=== PATIENT | female | born 1975 | race Caucasian/White ===

== ENCOUNTER → 2020-08-20 08:52 | Outpatient (BNVA) | payer OTHER, SELFPAY | PROVIDERS: Family Provider Family Medicine; PCP Family Medicine; Visit Provider Family Medicine Adult Medicine | DX: Z00.00 Encounter for general adult medical examination without abnormal findings (principal); E66.9 Obesity, unspecified; F32.9 Major depressive disorder, single episode, unspecified; F41.1 Generalized anxiety disorder; Z11.59 Encounter for screening for other viral diseases | CPT/HCPCS: 80053; 80061; 83036; 84443; 85025 ==

== ENCOUNTER 2020-09-26 10:50 | Outpatient (CLI) | payer OTHER, SELFPAY ==
--- NOTE | 2020-09-26 10:55 | MM_ITS ---
WS: [id number] BILATERAL DIGITAL SCREENING MAMMOGRAPHY WITH CAD CLINICAL INFORMATION: SCREENING HISTORY: Screening mammogram. No current complaints. COMPARISON: None. TECHNIQUE: Bilateral CC and MLO views. FINDINGS: Scattered fibroglandular densities bilaterally. No suspicious focal mass, asymmetry, calcifications, or architectural distortion. No evidence of malignancy. MM/[place] [id number] IMPRESSION: BI-RADS: 1-Negative FOLLOW UP: 1 Year Follow-up Recommend return to annual screening mammography.
== END 2020-09-26 10:51 | disposition home or self-care (01) ==
PROVIDERS: PCP Family Medicine; Visit Provider Family Medicine Adult Medicine
DX: Z12.31 Encounter for screening mammogram for malignant neoplasm of breast (principal)
CPT/HCPCS: 77067

== ENCOUNTER 2020-10-06 06:26 | Emergency (ER) | payer OTHER, SELFPAY ==
[2020-10-06 06:30] VITALS: BP 146/95; PULSE 100; RESP 16; TEMP 36.3; O2SAT 97; BMI 36.8
--- NOTE | 2020-10-06 06:35 | ECG_ITS ---
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
--- NOTE | 2020-10-06 06:35 | XR_ITS ---
WS: [id number] Exam: XR chest 1V portable [id number] Date/Time of Exam: 10/06/2020 7:07 AM Reason For Exam: chest pain Findings: The lungs are clear and fully expanded. Costophrenic angles are sharp. No infiltrates. Bronchovascula r relief appears normal. Cardiac silhouette is unremarkable. Bony elements are intact. XR/XR chest 1V portable [id number] IMPRESSION: Unremarkable chest radiograph.
--- NOTE | 2020-10-06 06:36 | ED_ITS ---
HPI - Chest Pain General: Chief Complaint: Chest Pain Stated Complaint: R LEG PAIN, CHEST PRESSURE Time Seen by Provider: 10/06/20 06:35 History of Present Illness: HPI narrative: 45-year-old female presents with complaint of right leg pain as well as chest discomfort that is worse when she lays down. The chest pain began 2 days ago right leg pain began about 4 days ago. Chest pains only when she lays down somewhat reproducible with palpation not reproducible with a deep breath. She rates her leg pain at a 3 when we first see her. States the chest pain is only when she moves in certain directions. It is enough at times to make it feel difficult to take a full breath. She not had any fever sweats or chills no productive cough. She refers most of the leg pain to the outer aspect of the thigh at times it radiates down into the foot. The chest pain is not significantly reproducible with palpation. I can bring about some chest discomfort with palpation but she states is not really the pain that brought her into the emergency room. MD complaint: chest pain Onset (ago): day(s) Timing of current episode: episodic Prior episodes: Yes Onset: during rest Pain location: left chest Pain radiation: none Severity: mild Quality: heaviness Relieving factors: sitting upright Exacerbating factors: supine Associated symptoms: Reports other (Right leg pain); Deny abdominal pain, diaphoresis, dyspnea, fever(s), leg edema, nausea, palpitations, sense of impending doom, syncope or vomiting Treatment prior to arrival: none Review of Systems Const: Denies: fever(s) or diaphoresis ENMT: Denies: throat pain, ear or mastoid pain, nasal discharge or nasal congestion Card: Denies: palpitations or syncope Resp: Denies: dyspnea GI: Denies: abdominal pain, nausea or vomiting : Denies: flank pain, difficulty voiding, dysuria, urinary frequency or urinary urgency Skin/Breast: Denies: rash or pruritus PFSH ED PFSH: Medical History ADHD Depression Encounter for screening laboratory testing for COVID-19 virus Generalized anxiety disorder Obesity (BMI 35.0-39.9 without comorbidity) Upper respiratory tract infection Family History Other Diabetes Myasthenia gravis Social History Smoking and tobacco status: never smoked Alcohol intake: never Household members: spouse and children Marital status: Number of children: 4 Current occupational status: employed History of recent travel: No Female Reproductive History: Date of last menstrual period: 09/13/20 Physical Exam Const: COMMON NORMALS: no acute distress GENERAL APPEARANCE: cooperative and comfortable ORIENTATION/CONSCIOUSNESS: Yes awake, Yes oriented to person, Yes oriented to place and Yes oriented to time HENMT: COMMON NORMALS: normocephalic, atraumatic and hearing grossly normal bilaterally HEAD & SCALP: normocephalic and atraumatic Neck/C-Spine: COMMON NORMALS: no JVD Resp: COMMON NORMALS: normal respiratory effort, No retractions, No use of accessory muscles and clear to auscultation bilaterally AUSCULTATION: clear to auscultation bilaterally Cardio: COMMON NORMALS: no JVD, regular rate, regular rhythm and No murmurs present (Cardio) RATE: regular rate RHYTHM: regular rhythm GI: COMMON NORMALS: Soft to palpation and No hepatosplenomegaly present AUSCULTATION: Yes normoactive bowel sounds PALPATION: Yes Soft to palpation, No Tenderness to palpation present (GI), No Guarding due to palpation present (GI) and Yes No hepatosplenomegaly present Extremity: COMMON NORMALS: normal to inspection, capillary refill normal, no clubbing, cyanosis or edema, no calf tenderness and no pedal edema Neuro: SENSORIUM/ORIENTATION: Yes oriented to person, Yes oriented to place and Yes oriented to time Skin: COMMON NORMALS: no rashes or lesions noted GENERAL SKIN EXAM: no rashes or lesions noted Course Vital Signs: Vital signs: Vital Signs Temperature 97.3 F L 10/06/20 06:30 Pulse Rate 76 10/06/20 10:57 Respiratory Rate 20 H 10/06/20 10:57 Blood Pressure 127/96 10/06/20 10:57 Pulse Oximetry 97 10/06/20 10:57 MDM - Chest Pain MDM Narrative: Medical decision making narrative: Went back to the room to discuss with the patient she was standing at the bedside now leaning over trying to relieve her leg pain. She was posturing and pain typical of patients with lumbar stenosis bend over through the hips isolating her low back. She states her leg pain was significantly worse than what had been in previously. Reexamined the patient she has a negative straight leg raising dorsum plantar flexion 5 5 sensation lower extremities normal bilaterally and her straight leg raising test is negative. We will go ahead and discharge her home states she had trouble in the past with Flexeril give her tizanidine instead as well as anti-inflammatory narcotic. Tricia try to get her set up for a MRI of her back given her radicular symptoms and get her into see Dr. Cote as soon as possible. Reviewed the findings with her DVT T screen was negative ultrasound of her heart showed no sign of pericardial effusion I do not believe she has a per icarditis. Her EKG did not show anything acute. She has any worsening or change symptoms return to the emergency room. Lab Data: Labs: Lab Results 10/06/20 10/06/20 10/06/20 Range/Units 06:42 06:42 06:42 WBC 5.5 (4.0-10.0) 10^3/ uL RBC 4.77 (4.1-5.3) 10^6/u L Hgb 14.8 (11.5-15.3) g/dL Hct 44.5 (37.0-47.0) % MCV 93.3 (81-99) fL MCH 31.0 (28.0-34.0) pg MCHC 33.3 (30.0-36.0) g/dL RDW 12.6 (12.1-15.1) % Plt Count 234 (130-400) 10^3/c mm MPV 9.1 (7.4-10.4) fL Neut % (Auto) 46.1 % Lymph % (Auto) 43.4 % [place] % (Auto) 7.3 % Eos % (Auto) 2.6 % Baso % (Auto) 0.4 % Neut # (Auto) 2.52 (1.8-7.7) 10^3/u L Lymph # (Auto) 2.4 (0.8-4.8) 10^3/u L [place] # (Auto) 0.4 (0.2-0.9) 10^3/u L Eos # (Auto) 0.1 (0.0-0.8) 10^3/u L Baso # (Auto) 0.0 (0.0-0.1) 10^3/u L Nucleated RBC % (a uto) 0 % Nucleated RBCs # 0.0 /100WBC Sodium 140 (136-145) mmol/L Potassium 4.2 (3.5-5.1) mmol/L Chloride 105 (98-107) mmol/L Carbon Dioxide 24 (22-29) mmol/L Anion Gap 15.2 (5-19) BUN 13 (6-20) mg/dL Creatinine 0.6 (0.5-0.9) mg/dL GFR Calculation 109.1 (90-130) mL/min Glucose 163 H (65-115) mg/dL Calculated Osmolal ity 294 (285-295) mOsm/k g Calcium 9.3 (8.5-10.5) mg/dL Total Bilirubin 0.5 (0.15-1.2) mg/dL AST 13 (0-32) U/L ALT 18 (0-33) U/L Alkaline Phosphata se 50 (35-105) IU/L Troponin T Baselin e 6 (0-10) ng/L Troponin T 120 Min tulalip (0-10) ng/L Delta Troponin T (0-10) ABS# Total Protein 8.5 (6.6-8.7) g/dL Albumin 4.5 (3.5-5.2) g/dL Globulin 4.0 (1.3-4.6) g/dL 10/06/20 Range/Units 09:22 WBC (4.0-10.0) 10^3/ uL RBC (4.1-5.3) 10^6/u L Hgb (11.5-15.3) g/dL Hct (37.0-47.0) % MCV (81-99) fL MCH (28.0-34.0) pg MCHC (30.0-36.0) g/dL RDW (12.1-15.1) % Plt Count (130-400) 10^3/c mm MPV (7.4-10.4) fL Neut % (Auto) % Lymph % (Auto) % [place] % (Auto) % Eos % (Auto) % Baso % (Auto) % Neut # (Auto) (1.8-7.7) 10^3/u L Lymph # (Auto) (0.8-4.8) 10^3/u L [place] # (Auto) (0.2-0.9) 10^3/u L Eos # (Auto) (0.0-0.8) 10^3/u L Baso # (Auto) (0.0-0.1) 10^3/u L Nucleated RBC % (a uto) % Nucleated RBCs # /100WBC Sodium (136-145) mmol/L Potassium (3.5-5.1) mmol/L Chloride (98-107) mmol/L Carbon Dioxide (22-29) mmol/L Anion Gap (5-19) BUN (6-20) mg/dL Creatinine (0.5-0.9) mg/dL GFR Calculation (90-130) mL/min Glucose (65-115) mg/dL Calculated Osmolal ity (285-295) mOsm/k g Calcium (8.5-10.5) mg/dL Total Bilirubin (0.15-1.2) mg/dL AST (0-32) U/L ALT (0-33) U/L Alkaline Phosphata se (35-105) IU/L Troponin T Baselin e (0-10) ng/L Troponin T 120 Min t[place]alip 6.00 (0-10) ng/L Delta Troponin T 0 (0-10) ABS# Total Protein (6.6-8.7) g/dL Albumin (3.5-5.2) g/dL Globulin (1.3-4.6) g/dL EKG Data^: EKG 1: EKG interpretation date: 10/06/20 EKG interpretation time: 06:36 Prior EKG tracings: not available for review Other EKG comments: Normal sinus rhythm rate of [address] segment changes. Discharge Plan Discharge Patient Disposition: Home Clinical Impression: Atypical chest pain, Radicular leg pain Condition: Stable Prescriptions: New hydrocodone-acetaminophen 5-325 mg tablet 1 tab PO Q6H PRN (Reason: pain) Qty: 20 RF: 0 diclofenac sodium 75 mg tablet,delayed release (DR/EC) 75 mg PO Q12H PRN (Reason: pain) Qty: 20 RF: 0 Medrol (Tomas) 4 mg tablets,dose pack See Rx Instructions .ROUTE .COMPLEX Qty: 21 RF: 0 tizanidine 4 mg capsule 4 mg PO Q8H PRN (Reason: muscle spasticity) Qty: 20 RF: 0 No Action buspirone 5 mg tablet 5 mg PO .q8 PRN (Reason: for increased anxiety) Qty: 30 RF: 2 citalopram 20 mg tablet 20 mg PO DAILY Qty: 30 RF: 5 pravastatin 40 mg tablet 40 mg PO DAILY Qty: 30 RF: 5 Discharge Orders: Discharge ED (Routine); Ordered 10/06/20 Ordered By: Lauro Walker Referrals: Papo Quinonez MD [Primary Care Provider] - Coding Level of Care Code ED Cafe Assistant for Lisa Gale
[2020-10-06] MEDS: aspirin 81 mg Chew Tablet 324 MG PO (06:40)
--- NOTE | 2020-10-06 06:43 | USCV_ITS ---
Ludwin Fanny Age: 45 Gender: F : 1975 Exam Date: 10/06/2020 06:54 Ordering Phys: Lauro Walker DO Technologist: Mirlande Shell Exam Location: [facility]_ Indication: RLE PAIN WITH SOB HISTORY: Lower extremity pain. PROCEDURES: Venous duplex imaging was performed in only the right lower extremity. The following venous structures were evaluated: common femoral vein, profunda vein, proximal portion of the greater saphenous vein, superficial femoral vein, and the popliteal vein. The following venous structures were evaluated: common femoral vein, profunda vein, proximal portion of the greater saphenous vein, superficial femoral vein, and the popliteal vein. In addition, the posterior tibial and peroneal trunk were evaluated. FINDINGS: No evidence of DVT seen in any vessel visualized at this time. CONCLUSIONS No evidence of right lower extremity DVT. Ahsan Luna MD (Electronically Signed) Final Date: 06 October 2020 08:57 S
[2020-10-06 06:49] LABS: Basophils % 0.4 %; Eosinophils # 0.1 10^3/uL (0.0-0.8); Eosinophils % 2.6 %; Hematocrit 44.5 % (37.0-47.0); Hemoglobin 14.8 g/dL (11.5-15.3); Lymphocytes # 2.4 10^3/uL (0.8-4.8); Lymphocytes % 43.4 %; Mean Corpuscular HGB Conc 33.3 g/dL (30.0-36.0); Mean Corpuscular Volume 93.3 fL (81-99); Mean Platelet Volume 9.1 fL (7.4-10.4); Monocytes # 0.4 10^3/uL (0.2-0.9); Monocytes % 7.3 %; Neutrophils # 2.52 10^3/uL (1.8-7.7); Neutrophils % 46.1 %; Nucleated Red Blood Cells % 0 %; Platelet Count 234 10^3/cmm (130-400); Red Blood Count 4.77 10^6/uL (4.1-5.3); Red Cell Distribution Width 12.6 % (12.1-15.1); White Blood Count 5.5 10^3/uL (4.0-10.0)
[2020-10-06 07:15] LABS: Alanine Aminotransferase 18 U/L (0-33); Albumin Level 4.5 g/dL (3.5-5.2); Alkaline Phosphatase 50 IU/L (35-105); Anion Gap 15.2 (5-19); Aspartate Amino Transferase 13 U/L (0-32); Blood Urea Nitrogen 13 mg/dL (6-20); Calcium 9.3 mg/dL (8.5-10.5); Carbon Dioxide 24 mmol/L (22-29); Chloride 105 mmol/L (98-107); Glomerular Filtration Rate 109.1 mL/min (90-130); Glucose 163 mg/dL (65-115); Osmolality Calculated 294 mOsm/kg (285-295); Potassium 4.2 mmol/L (3.5-5.1); Sodium 140 mmol/L (136-145); Total Bilirubin 0.5 mg/dL (0.15-1.2); Troponin(5th) Baseline 6 ng/L (0-10)
--- NOTE | 2020-10-06 07:31 | USCV_ITS ---
Ludwin Fanny Age: 45 Gender: F : 1975 Exam Date: 10/06/2020 07:53 Ordering Phys: Lauro Walker DO Technologist: Gabriella Shaw [place]am [place] [facility] [place] [facility] [place] Indication: CHEST PRESSURE BP: 129 / 71 HR: 69 Rhythm: Sinus Technical Quality: Adequate MEASUREMENTS (Male / Female) Normal Values 2D ECHO LV Diastolic Diameter PLAX 4.1 cm 4.2 - 5.9 / 3.9 - 5.3 cm LV Systolic Diameter PLAX 2.6 cm LV Chamber Size 3.3 cm IVS Diastolic Thickness 0.9 cm 0.6 - 1.0 / 0.6 - 0.9 cm IVS Systolic Thickness 1.5 cm LVPW Diastolic Thickness 1.1 cm 0.6 - 1.0 / 0.6 - 0.9 cm LVPW Systolic Thickness 1.5 cm RV Chamber Size 2.2 cm LVOT Diameter 2.0 cm LV Ejection Fraction 2D Teich 67.0 % LV Ejection Fraction MOD 2C 63.3 % LV Ejection Fraction 2C AL 61.8 % LA Diameter 3.7 cm LA Width 3.0 cm LA Height 3.1 cm RA Width 2.6 cm RA Height 4.6 cm Aorta at Sinotubular Diameter 3.1 cm M-MODE LV Diastolic Diameter MM 4.8 cm 4.2 - 5.9 / 3.9 - 5.3 cm LV Systolic Diameter MM 3.0 cm LV Ejection Fraction MM Teich 69.1 % IVS Diastolic Thickness MM 1.0 cm 0.6 - 1.0 / 0.6 - 0.9 cm IVS Systolic Thickness MM 1.5 cm LVPW Diastolic Thickness MM 1.0 cm 0.6 - 1.0 / 0.6 - 0.9 cm LVPW Systolic Thickness MM 1.9 cm RV Diastolic Diameter MM 1.2 cm Aortic Annulus Diameter 3.6 cm LA Ao Ratio MM 1.1 MV E Point Septal Separation 0.2 cm DOPPLER AV Peak Velocity 109.0 cm/s LVOT Peak Velocity 93.0 cm/s AV Area Cont Eq vti 3.7 cm squared AV Area Cont Eq pk 2.8 cm squared MV Area PHT 3.6 cm squared Mitral E to A Ratio 1.2 MV E' Velocity 39.0 cm/s Mitral E to MV E' Ratio 6.7 Mitral E to LV E' Lateral Ratio 6.5 Mitral E to LV E' Septal Ratio 6.8 TR Peak Velocity 152.1 cm/s TR Peak Gradient 9.2 mmHg TR Mean Velocity 121.1 cm/s TR Mean Gradient 6.2 mmHg TR Velocity Time Integral 36.5 cm TV Peak E Velocity 53.0 cm/s Right Atrial Pressure 3.0 mmHg Pulmonary Artery Systolic Pressu 12.2 mmHg PV Peak Velocity 48.7 cm/s RV Acceleration Time 0.2 s RV Ejection Time 0.4 s RV AcT/ET 0.4 FINDINGS Left Ventricle Normal left ventricular size and systolic function with no regional wall motion abnormalities. LVEF is 55 to 60%. Normal diastolic filling pattern. Right Ventricle The right ventricle is normal in size and function. Right Atrium The right atrium is normal in size. Left Atrium The left atrium is normal in size. Mitral Valve Structurally normal mitral valve without significant stenosis or prolapse. There is no mitral regurgitation. Aortic Valve Structurally normal aortic valve without significant sclerosis or stenosis. There is no aortic regurgitation. Tricuspid Valve Structurally normal tricuspid valve without significant stenosis or regurgitation. Insufficient TR jet to calculate RVSP. Pulmonic Valve Structurally normal pulmonic valve without significant stenosis. There is no pulmonic regurgitation. Pericardium Normal pericardium without effusion. Aorta Normal ascending aorta dimension. CONCLUSIONS Que Worrell MD (Electronically Signed) Final Date: 06 October 2020 09:51 S
--- NOTE | 2020-10-06 08:35 | ECG_ITS ---
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
[2020-10-06 08:42] VITALS: BP 111/74; PULSE 67; RESP 20; O2SAT 97
[2020-10-06 09:49] LABS: Troponin 5 2HR Delta 0 ABS# (0-10)
[2020-10-06] MEDS: dexamethasone 10 mg/mL INJ IVP (10:20)
[2020-10-06] MEDS: ondansetron 2 mg/ML SDV 2 mL 4 MG IVP (10:20)
[2020-10-06 10:57] VITALS: BP 127/96; PULSE 76; RESP 20; O2SAT 97
[2020-10-06 14:52] LABS: Total Protein 6.4 g/dL (6.6-8.7)
[2020-10-06 14:53] LABS: Globulin 1.9 g/dL (1.3-4.6)
--- NOTE | 2020-10-06 15:53 | DCPLANNER ---
document manager had message to schedule an out patient MRI for patient. document manager faxed patients information to centralized scheduling, will call for appointment information.
--- NOTE | 2020-11-05 14:11 | DCPLANNER ---
Patient had an out patient MRI scheduled, patient cancelled the appointment stating that she did not feel like she needed it at this time. corporate human resources manager will not make referral to ortho due to not having the MRI completed.
== END 2020-10-06 11:05 | disposition home or self-care (01) ==
PROVIDERS: Emergency Provider Family Medicine; PCP Family Medicine Adult Medicine
DX: R07.89 Other chest pain (principal); M54.10 Radiculopathy, site unspecified
CPT/HCPCS: 12345; 71045; 80053; 84484; 85025; 93005; 93306; 93971; 96374; 96375; 99282; 99284; J1100; J2405

== ENCOUNTER → 2020-10-30 17:13 | Outpatient (BNVA) | payer OTHER, SELFPAY | PROVIDERS: PCP Family Medicine Adult Medicine; Visit Provider Nurse Practitioner Family | DX: Z11.59 Encounter for screening for other viral diseases (principal) | CPT/HCPCS: 87635 ==

== ENCOUNTER 2021-01-11 02:46 | Emergency (ER) | payer OTHER, SELFPAY ==
[2021-01-11 02:51] VITALS: BP 194/148; PULSE 158; RESP 60; O2SAT 96; BMI 35.5
--- NOTE | 2021-01-11 03:05 | ED_ITS ---
HPI - Allergic Reaction General: Chief complaint: Allergic Reaction Stated complaint: POSS ALLERGIC REACTION Time Seen by Provider: 01/11/21 02:55 Source: patient and family () Mode of arrival: ambulatory Limitations: no limitations History of Present Illness: HPI narrative: Patient is a 45-year-old female who presents to ED today along with her for complaints of a possible allergic reaction. Patient tells me she woke up around 2 AM this morning with a severe diffuse pruritic rash. No new medications. No known household, environmental, chemical exposures. Patient appears extremely anxious on exam. She states she has had two previous similar episodes that were not this severe. She is not complaining of any difficulty breathing. Denies trouble swallowing. No tongue or lip swelling. MD complaint: allergic reaction and hives Onset (ago): hour(s) (one hour ago) Exposure: unknown Associated symptoms: Reports itching and rash; Deny abdominal pain, nausea or vomiting Severity: severe Treatment prior to arrival: benadryl Previous Allergic Reaction History: none Review of Systems Const: Denies: fever(s), chills, body aches, fatigue or malaise Eyes: Denies: change in vision, blurry vision or photophobia ENMT: Denies: throat pain, odynophagia, mouth pain, swelling of lips/tongue, oral sores, ear discharge, nasal discharge, nasal congestion, post nasal drip or sinus pain Card: Denies: chest pain, palpitations, irregular heart rhythm, edema, lightheadedness, syncope or pre-syncope Resp: Denies: dyspnea GI: Denies: abdominal pain, nausea or vomiting Musc: Denies: neck pain, back pain, extremity pain or joint pain Skin/Breast: Reports: rash, pruritus and erythema Neuro: Denies: headache(s), numbness in extremities, weakness in extremities or sensory changes Psych: Reports: anxiety PFSH ED PFSH: Medical History (Updated 01/11/21 @ 03:54 by BHARGAV Navarro) ADHD Depression Encounter for screening laboratory testing for COVID-19 virus Generalized anxiety disorder Hyperlipidemia Obesity (BMI 35.0-39.9 without comorbidity) Prediabetes Upper respiratory tract infection Family History Other Diabetes Myasthenia gravis Social History Smoking and tobacco status: never smoked Alcohol intake: never Household members: spouse and children Marital status: Number of children: 4 Current occupational status: employed History of recent travel: No Female Reproductive History: Date of last menstrual period: 09/13/20 Physical Exam Const: COMMON NORMALS: no limitations and alert GENERAL APPEARANCE: anxious ORIENTATION/CONSCIOUSNESS: Yes awake, Yes oriented to person, Yes oriented to place and Yes oriented to time OTHER: patient extremely anxious; shaking HENMT: COMMON NORMALS: normocephalic and atraumatic HEAD & SCALP: normal to inspection, normocephalic and atraumatic FACE & SINUS: normal facial exam EXTERNAL EAR: Yes other (mild swelling to bilateral external ears) MOUTH: other (no angioedema) Eye: GENERAL EYE: appearance normal, both eyes and all related structures Chest: COMMONS NORMALS: normal inspection of the chest and normal palpation of entire chest wall Resp: COMMON NORMALS: clear to auscultation bilaterally EFFORT & INSPECTION: Yes tachypneic, No respiratory distress and No labored AUSCULTATION: clear to auscultation bilaterally OTHER: patient has stuttering speech Cardio: COMMON NORMALS: regular rhythm RATE: tachycardic RHYTHM: regular rhythm Neuro: SENSORIUM/ORIENTATION: Yes alert, Yes oriented to person, Yes oriented to place and Yes oriented to time Skin: NARRATIVE SKIN EXAM: diffuse urticaria Course Reevaluation(s): Reevaluation #1: Patient during my initial assessment had a BP of 194/148 with a HR in the 140s. She was re-examinated a few minutes after IV Ativan and Benadryl. BP now 158/94 with a HR of 98. Speaking to patient seemed to re-trigger some anxiety and she began shaking and stuttering again. I will order another 1mg Ativan. Vital Signs: Vital signs: Vital Signs Pulse Rate 96 01/11/21 04:38 Respiratory Rate 23 H 01/11/21 04:38 Blood Pressure 130/70 01/11/21 04:38 Pulse Oximetry 97 01/11/21 04:38 MDM - Allergic Reaction MDM Narrative: Medical decision making narrative: Patient completely asymptomatic after IV benadryl, pepcid, solu-medrol and ativan. Vitals have been stable and patient has been monitored following medications. She is stable for DC and feels comfortable going home at this time. Discharge Plan Discharge Patient Disposition: Home Clinical Impression: Urticaria, Panic attack Condition: Stable Prescriptions: No Action niacin 500 mg tablet extended release 24 hr 500 mg PO DAILY Qty: 30 RF: 5 citalopram 20 mg tablet 20 mg PO DAILY Qty: 30 RF: 5 buspirone 5 mg tablet 5 mg PO .q8 PRN (Reason: for increased anxiety) Qty: 30 RF: 5 Discharge Orders: Discharge ED (Routine); Ordered 01/11/21 Ordered By: Jayda Adams Referrals: Papo Quinonez MD [Primary Care Provider] - Patient Instructions: Urticaria (ED), Panic Attack Activity Restrictions/Additional Instructions: She may continue to take 50 mg Benadryl every 6 hours as needed for rash and itching. She may return to the emergency department for any worsening symptoms. Return immediately for any difficulty breathing, shortness of breath, tongue or lip swelling, or any other concerns you may have. Coding Level of Care Code ED Assisted Living Assistant for Lisa Fwd Exam Detailed
[2021-01-11] MEDS: LORazepam 2 mg/mL INJ 1 mL 1 MG IVP ×2 (03:11→03:28)
[2021-01-11] MEDS: diphenhydrAMINE 50 mg/mL SDV 1mL IVP (03:11)
[2021-01-11 03:13] VITALS: BP 194/148; PULSE 108; RESP 45; O2SAT 97
[2021-01-11] MEDS: famotidine 20 mg/2 mL INJ 40 MG IVP (03:27)
[2021-01-11 04:00] VITALS: BP 130/70; PULSE 99; RESP 17; O2SAT 95
[2021-01-11 04:38] VITALS: BP 130/70; PULSE 96; RESP 23; O2SAT 97
== END 2021-01-11 04:41 | disposition home or self-care (01) ==
PROVIDERS: Emergency Provider Physician Assistant; PCP Family Medicine Adult Medicine
DX: L50.9 Urticaria, unspecified (principal); F41.0 Panic disorder [episodic paroxysmal anxiety]; E78.5 Hyperlipidemia, unspecified
CPT/HCPCS: 96374; 96375; 99284; J1200; J2060; J2930; J3490

== ENCOUNTER → 2021-02-13 08:03 | Outpatient (BNVA) | payer OTHER, SELFPAY | PROVIDERS: PCP Family Medicine Adult Medicine; Visit Provider Family Medicine Adult Medicine | DX: S80.269A Insect bite (nonvenomous), unspecified knee, initial encounter (principal); W57.XXXA Bitten or stung by nonvenomous insect and other nonvenomous arthropods, initial encounter; L50.0 Allergic urticaria | CPT/HCPCS: 85007; 85027; 86003; 86618; 86666; 86757 ==

== ENCOUNTER → 2021-08-26 08:35 | Outpatient (BNVA) | payer OTHER, SELFPAY | PROVIDERS: PCP Family Medicine; Visit Provider Family Medicine | DX: Z91.018 Allergy to other foods (principal); E78.5 Hyperlipidemia, unspecified | CPT/HCPCS: 80061; 86003 ==

== ENCOUNTER → 2021-09-22 15:33 | Outpatient (BNVA) | payer OTHER, SELFPAY | PROVIDERS: PCP Family Medicine; Visit Provider Family Medicine | DX: Z20.822 Contact with and (suspected) exposure to COVID-19 (principal) | CPT/HCPCS: 87635 ==

== ENCOUNTER 2022-01-10 09:28 | Day surgery (SDC) | payer OTHER, SELFPAY ==
[2022-01-10] VITALS (15 sets, daily range): BP systolic 109–177; BP diastolic 60–95; PULSE 61–99; RESP 17–24; TEMP 36.2–36.7; O2SAT 96–100; BMI 32.3
--- NOTE | 2022-01-10 09:35 | ED_ITS ---
HPI - Abdominal Pain General: Chief Complaint: Abdominal Pain Stated Complaint: abdominal pain Time Seen by Provider: 01/10/22 09:35 History of Present Illness: Ms. 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 Symptoms started approximately 5 AM this morning. Symptoms are sharp and aching in the right abdomen. Associated nausea and diarrhea. Worse with movement and driving here. Intensity is moderate to severe. Denies similar episodes in the past. Has a history of abdominoplasty however no intra-abdominal surgeries. No other specific changes in health, exacerbating, or alleviating factors identified. Onset (ago): hour(s) Pain Consistency: constant Location: RUQ, RLQ and R flank Severity: moderate Quality: aching and sharp Exacerbating factors: movement Associated Symptoms: Reports diarrhea and nausea Related Data: Date of Last Menstrual Period: 01/04/22 Review of Systems General: Reports: 10 or more systems reviewed and unremarkable except in HPI and below GI: Reports: nausea and diarrhea PFSH ED PFSH: Medical History (Updated 01/10/22 @ 13:13 by Michael Perez MD) ADHD Allergic urticaria Depression Generalized anxiety disorder Hyperlipidemia Prediabetes Upper respiratory tract infection Surgical History (Updated 01/10/22 @ 13:32 by Michale Perez MD) History of abdominoplasty S/P laparoscopic appendectomy (01/10/22) Family History Other Diabetes Myasthenia gravis Social History Smoking and tobacco status: never smoked Alcohol intake: never Household members: spouse and children Marital status: Number of children: 4 Current occupational status: employed History of recent travel: No Female Reproductive History: Date of last menstrual period: 01/04/22 Physical Exam Const: COMMON NORMALS: alert GENERAL APPEARANCE: cooperative and well devel oped HENMT: COMMON NORMALS: normocephalic and atraumatic HEAD & SCALP: normocephalic and atraumatic Eye: COMMON NORMALS: conjunctivae normal CONJUNCTIVA: Yes conjunctivae normal SCLERA: sclerae normal Neck/C-Spine: COMMON NORMALS: supple GENERAL: Yes trachea midline Resp: COMMON NORMALS: clear to auscultation bilaterally EFFORT & INSPECTION: Yes able to speak in complete sentences AUSCULTATION: clear to auscultation bilaterally Cardio: COMMON NORMALS: regular rate and regular rhythm RATE: regular rate RHYTHM: regular rhythm GI: COMMON NORMALS: Soft to palpation PALPATION: Yes Soft to palpation, Yes Tenderness to palpation present (GI) Details: RLQ and RUQ, Yes Guarding due to palpation present (GI), No Rigid due to palpation, Yes Rebound tenderness present and Yes Other GI palpation findings present (Some right abdominal tenderness to left abdominal percussion) Extremity: GENERAL: Yes normal exam except as noted and No edema Neuro: COMMON NORMALS: moves all extremities SENSORIUM/ORIENTATION: Yes alert and No Orientation impaired Psych: COMMON NORMALS: mental status grossly normal and Normal thought process present THOUGHT PROCESS: Normal thought process present Course ED course: - Patient was seen and evaluated by me at bedside - Patient placed on cardiac monitors, IV access obtained - Initial evaluation notable for exam as above - Labs personally interpreted by me - Morphine and Zofran given - Patient subsequently developed feeling of shortness of breath, initially moderate intensity symptoms though oxygen saturation adequate there was associated tachycardia. Patient subsequently developed vomiting at which point anaphylaxis treatment was ordered with complete resolution of respiratory symptoms and improvement in overall condition with additional analgesia. - Labs notable for minimal leukocytosis, normal hemoglobin. Metabolic panel without acute derangement to explain symptoms. - Imaging notable for early acute appendicitis. - Upon serial reexamination after treatment the patient was improved - Based on patient history, evaluation, and testing as interpreted the most likely cause of the patient's condition is appendicitis - The results of ED evaluation were discussed with the patient including plan for admission due to requirement for level of care not available if discharged to prevent significant worsening/deterioration. - Admitting service was contacted and Dr Perez with general surgery agreed to admit the patient - Patient was admitted without further deterioration or significant events. Note: Click bubbles or prepopulated mccray in note writing are used for assistance with data collection and billing and are inherently more limited than narrative and other text portions of this note. Please use narrative for additional clinical history and defer to narrative/free test for any case of contradictory information. If information appears in only free text or click bubble it should be considered present or absent as reported. Please contact note health science writer for clarifications of clinical information or contradictory information. MDM is a brief summary, contradictory or erroneous seeming information should be clarified and full note should be reviewed. Vital Signs: Vital signs: Vital Signs Temperature 97.4 F L 01/10/22 15:48 Pulse Rate 68 01/10/22 15:48 Respiratory Rate 18 01/10/22 15:48 Blood Pressure 128/72 01/10/22 15:48 Pulse Oximetry 98 01/10/22 15:48 MDM - Abdominal Pain Medical Decision Making 46-year-old lady presenting with abdominal pain. Patient found to have appendicitis. Will go to surgery. Medical Records I reviewed the patient's medical records. Lab Data I reviewed the patient's lab results. : 01/10/22 09:53 01/10/22 09:53 Labs/Radiology: Radiology Impressions Abdomen/Pelvis CT 01/10/22 10:48 IMPRESSION: 1. Findings consistent with early appendicitis. Clinical correlation is recommended. 2. Mild right renal pelviectasis and abdominal hydroureter. 3. No specific evidence of acute obstructive uropathy. 4. Focal mid anterior left renal cortical scarring. 5. Left renal calyceal lithiasis. THIS REPORT CONTAINS FINDINGS THAT MAY BE CRITICAL TO PATIENT CARE. The findings were verbally communicated by me to Dr. Garfield Carpio via telephone conference at 12:07 PM CDT on 01/10/2022. The findings were acknowledged and understood. Laboratory Results WBC 10.8 10^3/uL (4.0-10.0) H 01/10/22 09:53 RBC 4.44 10^6/uL (4.1-5.3) 01/10/22 09:53 Hgb 13.8 g/dL (11.5-15.3) 01/10/22 09:53 Hct 39.9 % (37.0-47.0) 01/10/22 09:53 MCV 89.9 fl (81-99) 01/10/22 09:53 MCH 31.1 pg (28.0-34.0) 01/10/22 09:53 MCHC 34.6 g/dL (30.0-36.0) 01/10/22 09:53 RDW 12.5 % (12.1-15.1) 01/10/22 09:53 Plt Count 239 10^3/cmm (130-400) 01/10/22 09:53 MPV 9.3 fL (7.4-10.4) 01/10/22 09:53 Neut % (Auto) 77.2 % 01/10/22 09:53 Lymph % (Auto) 14.3 % 01/10/22 09:53 [place] % (Auto) 7.2 % 01/10/22 09:53 Eos % (Auto) 0.6 % 01/10/22 09:53 Baso % (Auto) 0.3 % 01/10/22 09:53 Neut # (Auto) 8.34 10^3/uL (1.8-7.7) H 01/10/22 09:53 Lymph # (Auto) 1.6 10^3/uL (0.8-4.8) 01/10/22 09:53 [place] # (Auto) 0.8 10^3/uL (0.2-0.9) 01/10/22 09:53 Eos # (Auto) 0.1 10^3/uL (0.0-0.8) 01/10/22 09:53 Baso # (Auto) 0.0 10^3/uL (0.0-0.1) 01/10/22 09:53 Nucleated RBC % (auto) 0 % 01/10/22 09:53 Nucleated RBCs # 0.0 /100WBC 01/10/22 09:53 Sodium 136 mmol/L (136-145) 01/10/22 09:53 Potassium 4.0 mmol/L (3.5-5.1) 01/10/22 09:53 Chloride 103 mmol/L (98-107) 01/10/22 09:53 Carbon Dioxide 23 mmol/L (22-29) 01/10/22 09:53 Anion Gap 14.0 (5-19) 01/10/22 09:53 BUN 12 mg/dL (6-20) 01/10/22 09:53 Creatinine 0.5 mg/dL (0.5-0.9) 01/10/22 09:53 GFR Calculation 134.0 mL/min (90-130) H 01/10/22 09:53 Glucose 147 mg/dL (65-115) H 01/10/22 09:53 Calculated Osmolality 284 mOsm/kg (285-295) L 01/10/22 09:53 Lactate 1.2 mmol/L (0.5-2.2) 01/10/22 09:53 Calcium 8.3 mg/dL (8.5-10.5) L 01/10/22 09:53 Total Bilirubin 0.9 mg/dL (0.15-1.2) 01/10/22 09:53 AST 13 U/L (0-32) 01/10/22 09:53 ALT 15 U/L (0-33) 01/10/22 09:53 Alkaline Phosphatase 56 IU/L (35-105) 01/10/22 09:53 Total Protein 6.0 g/dL (6.6-8.7) L 01/10/22 09:53 Albumin 4.5 g/dL (3.5-5.2) 01/10/22 09:53 Globulin 1.5 g/dL (1.3-4.6) 01/10/22 09:53 Lipase 13 U/L (13-60) 01/10/22 09:53 HCG, Qual Negative (Negative) 01/10/22 09:45 Urine Color Yellow (Yellow) 01/10/22 09:45 Urine Appearance Clear (CLEAR) 01/10/22 09:45 Urine pH 8 (5-7) H 01/10/22 09:45 Ur Specific [place] 1.015 (1.005-1.030) 01/10/22 09:45 Urine Protein Neg (Negative) 01/10/22 09:45 Urine Glucose (UA) Norm (Normal) 01/10/22 09:45 Urine Ketones Negative (Negative) 01/10/22 09:45 Urine Blood Neg (Negative) 01/10/22 09:45 Urine Nitrate Negative (Negative) 01/10/22 09:45 Urine Bilirubin Neg (Negative) 01/10/22 09:45 Prot Sulfosalicylic Acd Negative (Negative) 01/10/22 09:45 Urine Urobilinogen Norm mg/dL (Negative) 01/10/22 09:45 Ur Leukocyte Esterase Negative (Negative) 01/10/22 09:45 Discharge Plan Discharge Patient Disposition: Placed in Observation Clinical Impression: Acute appendicitis Discharge Diet: Advance as tolerated Discharge Activity: Resume usual activity Coding Level of Care Code ED Flooring Machine Operator for Chg Fwd Exam Comprehensive
[2022-01-10] MEDS: ondansetron 2 mg/ML SDV 2 mL 4 MG IVP (10:05)
[2022-01-10] MEDS: morphine 4 mg/mL SDV 1 mL IVP (10:05)
[2022-01-10 10:09] LABS: Add Urine Microscopic? NO; Charge for UA Resulting for Rev
[2022-01-10 10:13] LABS: Bilirubin Urine Neg (Negative); Blood Urine Neg (Negative); Glucose Urine UA Norm (Normal); Ketones Urine Negative (Negative); Leukocyte Esterase Urine Negative (Negative); Nitrate Urine Negative (Negative); Protein Urine Neg (Negative); Specific Gravity, Urine 1.015 (1.005-1.030); Sulfosalicylic Acid Urine Negative (Negative); Urine Appearance Clear (CLEAR); Urine Color Yellow (Yellow); Urobilinogen Urine Norm (Negative); pH Urine 8 (5-7)
[2022-01-10 10:17] LABS: Basophils % 0.3 %; Eosinophils # 0.1 10^3/uL (0.0-0.8); Eosinophils % 0.6 %; Hematocrit 39.9 % (37.0-47.0); Hemoglobin 13.8 g/dL (11.5-15.3); Lymphocytes # 1.6 10^3/uL (0.8-4.8); Lymphocytes % 14.3 %; Mean Corpuscular HGB Conc 34.6 g/dL (30.0-36.0); Mean Corpuscular Hemoglobin 31.1 pg (28.0-34.0); Mean Corpuscular Volume 89.9 fl (81-99); Mean Platelet Volume 9.3 fL (7.4-10.4); Monocytes # 0.8 10^3/uL (0.2-0.9); Monocytes % 7.2 %; Neutrophils # 8.34 10^3/uL (1.8-7.7); Neutrophils % 77.2 %; Nucleated Red Blood Cells % 0 %; Platelet Count 239 10^3/cmm (130-400); Red Blood Count 4.44 10^6/uL (4.1-5.3); Red Cell Distribution Width 12.5 % (12.1-15.1); White Blood Count 10.8 10^3/uL (4.0-10.0)
[2022-01-10] MEDS: fentaNYL 50 mcg/mL INJ 2mL 75 MCG IVP (10:26)
[2022-01-10] MEDS: EPINEPHrine 1 mg/mL INJ 0.3 MG IM (10:37)
[2022-01-10] MEDS: famotidine 20 mg/2 mL INJ 40 MG IVP (10:37)
[2022-01-10] MEDS: diphenhydrAMINE 50 mg/mL SDV 1mL IVP ×2 (10:37→13:09)
[2022-01-10 10:39] LABS: HCG Qualitative Urine. Negative (Negative)
[2022-01-10 10:41] LABS: Alanine Aminotransferase 15 U/L (0-33); Albumin Level 4.5 g/dL (3.5-5.2); Alkaline Phosphatase 56 IU/L (35-105); Aspartate Amino Transferase 13 U/L (0-32); Blood Urea Nitrogen 12 mg/dL (6-20); Calcium 8.3 mg/dL (8.5-10.5); Carbon Dioxide 23 mmol/L (22-29); Chloride 103 mmol/L (98-107); Globulin 1.5 g/dL (1.3-4.6); Glucose 147 mg/dL (65-115); Lipase 13 U/L (13-60); Osmolality Calculated 284 mOsm/kg (285-295); Sodium 136 mmol/L (136-145); Total Bilirubin 0.9 mg/dL (0.15-1.2)
[2022-01-10 10:42] LABS: Lactate (Lactic Acid level) 1.2 mmol/L (0.5-2.2)
--- NOTE | 2022-01-10 10:48 | CTR_ITS ---
PROCEDURE INFORMATION: Exam: CT Abdomen And Pelvis With Contrast Exam date and time: 01/10/2022 11:05 AM Age: 46 years old Clinical indication: Abdominal pain; Localized; Right lower quadrant (rlq); Additional info: Ruq pain, n/d TECHNIQUE: Imaging protocol: Computed tomography of the abdomen and pelvis with contrast. Radiation optimization: All CT scans at this facility use at least one of these dose optimization techniques: automated exposure control; mA and/or kV adjustment per patient size (includes targeted exams where dose is matched to clinical indication); or iterative reconstruction. Contrast material: OMNI 300; Contrast volume: 95 ml; Contrast route: INTRAVENOUS (IV); COMPARISON: CR XR chest 1V portable [id number] 10/06/2020 7:08 AM RADIATION DOSE METRICS: Total DLP (mGy-cm): 1656.1 FINDINGS: Liver: Normal. No mass. Gallbladder and bile ducts: Normal. No calcified stones. No ductal dilation. Pancreas: Normal. No ductal dilation. Spleen: Normal. No splenomegaly. Adrenal glands: Normal. No mass. Kidneys and ureters: Mild right renal pelviectasis and abdominal hydroureter, no obstructing calculus identified. No specific evidence of acute obstructive uropathy. Focal mid anterior left renal cortical scarring. Left renal calculi (2), the largest in the mid kidney measuring 1.7 mm. Stomach and bowel: Unremarkable. No obstruction. No mucosal thickening. Appendix: The appendix is mildly enlarged, measuring approximately 8.9 mm diameter with mild periappendiceal edema. An obstructing appendicolith is not identified. A periappendiceal fluid collection is not identified. Intraperitoneal space: No free air. No significant fluid collection. Vasculature: Unremarkable. No abdominal aortic aneurysm. Lymph nodes: No enlarged lymph nodes. Urinary bladder: Unremarkable as visualized. Reproductive: Unremarkable as visualized. Bones/joints: 15 mm probable bone island left S2 sacral ala. 5.3 mm left superior acetabular probable benign bone island. Soft tissues: Unremarkable. CT/CT abdomen pelvis w con* [id number] IMPRESSION: 1. Findings consistent with early appendicitis. Clinical correlation is recommended. 2. Mild right renal pelviectasis and abdominal hydroureter. 3. No specific evidence of acute obstructive uropathy. 4. Focal mid anterior left renal cortical scarring. 5. Left renal calyceal lithiasis. THIS REPORT CONTAINS FINDINGS THAT MAY BE CRITICAL TO PATIENT CARE. The findings were verbally communicated by me to Dr. Garfield Carpio via telephone conference at 12:07 PM CDT on 01/10/2022. The findings were acknowledged and understood.
[2022-01-10] MEDS: iohexol 300 mg/mL 100 mL Btl IV (11:06)
[2022-01-10] MEDS: sodium chloride 0.9% 1,000 ML 999 ML IV (11:59)
[2022-01-10] MEDS: piperacillin-tazobactam 4.5 GM in sodium chloride 0.9% (plus) 50 ML IV (12:38)
--- NOTE | 2022-01-10 13:07 | P.HP_ITS ---
Providers/Chief Complaint Primary Care Provider: Chris Martinez DO Chief Complaint: abdominal pain History of Present Illness 46-year-old female who presented to the ER today with abdominal pain since2 AM this morning. The pain is localized to the right lower quadrant, worse with movement, had some nausea and diarrhea. She denies any vomiting, denies any urinary symptoms no similar episodes in the past. Medications/Allergies Home Medications Medication Instructions Recorded Confirmed Last Taken Type epinephrine 0.3 mg/0.3 mL 0.3 mg (0.3 mL) IM Q15M PRN #2 ea 02/18/21 01/10/22 Unknown Rx injection, auto-injector (EpiPen 2-Tomas) Allergies Allergy/AdvReac Type Severity Reaction Status Date / Time morphine Allergy Severe ADR-Anxiety Verified 01/10/22 10:52 piperacillin [From Zosyn] Allergy Severe ALGY-Hives Verified 01/10/22 13:12 tazobactam [From Zosyn] Allergy Severe ALGY-Hives Verified 01/10/22 13:12 Nflvbljkm-Snlbr-0,3-Galactose Allergy Intermediate ALGY-Rash Verified 09/07/21 08:32 (Alph cyclobenzaprine Allergy Unknown Verified 09/07/21 08:32 [From Flexeril] PFSH Acute PFSH: Medical History (Updated 01/10/22 @ 13:13 by Michael Perez MD) ADHD Allergic urticaria Depression Generalized anxiety disorder Hyperlipidemia Prediabetes Upper respiratory tract infection Surgical History (Updated 01/10/22 @ 13:13 by Michael Perez MD) History of abdominoplasty Family History Other Diabetes Myasthenia gravis Social History Smoking and tobacco status: never smoked Alcohol intake: never Household members: spouse and children Marital status: Number of children: 4 Current occupational status: employed History of recent travel: No Female Reproductive History: Date of last menstrual period: 01/04/22 Vitals/I&O/Wt Last Vital Signs Temp 98.0 F 01/10/22 09:32 Pulse 99 01/10/22 10:44 Resp 19 H 01/10/22 10:44 BP 177/74 01/10/22 10:44 Pulse Ox 100 01/10/22 10:44 Weight last 48 hrs Weight 200 lb Physical Exam Narrative: HEENT: Normocephalic Eye: Sclera /conjunctiva normal Respiratory and chest: Bilateral clear breath sounds on auscultation Cardiovascular: Normal S1 and S2 heart sounds Abdomen: Soft to palpation, tender to palpation right lower quadrant, well- healed Pfannenstiel scar and periumbilical scar from abdominoplasty Neurological: Oriented to place person and time Skin: Intact, no lesions appreciated on gross exam Data : 01/10/22 09:53 01/10/22 09:53 A&P Assessment and plan (1) Acute appendicitis: 46-year-old female who presents with right lower quadrant pain, nausea and she is tender to palpation in the right lower quadrant. WBC is [address] scan showed early acute appendicitis. Plan for laparoscopic possible open appendectomy Procedure, risks, benefits and alternatives have been discussed with the patient who wishes to proceed with surgery. IV Zosyn in ER Status: Acute Attestations Medical Necessity Statement*: Acute appendicitis requiring surgery Coding Level of Care Code Acute Plastic Tile Layer for [facility] Shahla Diagnoses Acute appendicitis K35.80
--- NOTE | 2022-01-10 13:10 | PC.NURSE ---
Administered 50 mg Benadryl IV for hives that appeared after administration of Zosyn
--- NOTE | 2022-01-10 13:28 | ANES.PREANE2 ---
Pre-Anesthetic Assessment Height/Weight: Height 1.68 m Weight 90.718 kg Temp Pulse Resp BP Pulse Ox 98.0 F 99 19 H 177/74 100 01/10/22 09:32 01/10/22 10:44 01/10/22 10:44 01/10/22 10:44 01/10/22 10:44 Preop Diagnosis: appendicitis Operation Date: 01/10/22 13:50 Proposed Procedures p Laparoscopic Appendectomy(Not Applicable) - Michael Perez MD Familial anesthetic complications: None Was Beta Aline taken within 24 hours: N/A Was Clonidine taken within 24 hours: N/A Last intake: > 8 hrs Social No alcohol and No tobacco Exam alert, oriented x 3, clear to auscultation bilaterally and regular rate & rhythm Airway Mallampati: Class I Dentition: full Pulmonary None reported CV/HEM None reported None reported Hepatic None reported GI None reported Metabolic None reported Musc/skel None reported Neuropsych None reported Anesthetic Plan ASA status: 1 Anesthesia: General Risk of > 500 ml blood loss (7ml/kg in children): No Other Pertinent Information Patient has alpha-gal allergy and was given benadryl after developing shortness of breath and vomiting with zosyn administration. Symptoms since resolved, but interval development of hives has occurred. Spoke with pharmacy regarding safety profile of our hospital's propofol (diprivan specifically), fentanyl, Rocuronium, and Succinylcholine. These medications were found to be safe for alpha-gal administration Medications/Allergies Home Medications Medication Instructions Recorded Confirmed Last Taken Type epinephrine 0.3 mg/0.3 mL 0.3 mg (0.3 mL) IM Q15M PRN #2 ea 02/18/21 01/10/22 Unknown Rx injection, auto-injector (EpiPen 2-Tomas) hydrocodone 5 mg-acetaminophen 325 1 tab PO Q6H PRN #20 tab 01/10/22 Unknown Rx mg tablet Allergies Allergy/AdvReac Type Severity Reaction Status Date / Time morphine Allergy Severe ADR-Anxiety Verified 01/10/22 10:52 piperacillin [From Zosyn] Allergy Severe ALGY-Hives Verified 01/10/22 13:12 tazobactam [From Zosyn] Allergy Severe ALGY-Hives Verified 01/10/22 13:12 Esgwpgnae-Aicso-5,3-Galactose Allergy Intermediate ALGY-Rash Verified 09/07/21 08:32 (Alph cyclobenzaprine Allergy Unknown Verified 09/07/21 08:32 [From Flexeril] [facility] Anesthesia Medical History (Updated 01/10/22 @ 13:13 by Michael Perez MD) ADHD Allergic urticaria Depression Generalized anxiety disorder Hyperlipidemia Prediabetes Upper respiratory tract infection Surgical History (Updated 01/10/22 @ 13:32 by Michael Perez MD) History of abdominoplasty S/P laparoscopic appendectomy (01/10/22) Family History Other Diabetes Myasthenia gravis Social History Smoking and tobacco status: never smoked Alcohol intake: never Household members: spouse and children Marital status: Number of children: 4 Current occupational status: employed History of recent travel: No Female Reproductive History Date of last menstrual period: 01/04/22 Data Anesthesia : 01/10/22 09:53 01/10/22 09:53 Short CBC 01/10/22 Range/Units 09:53 WBC 10.8 H (4.0-10.0) 10^3/uL Hgb 13.8 (11.5-15.3) g/dL Hct 39.9 (37.0-47.0) % MCV 89.9 (81-99) fl Plt Count 239 (130-400) 10^3/cmm Neut % (Auto) 77.2 % Neut # (Auto) 8.34 H (1.8-7.7) 10^3/uL BMP 01/10/22 09:53 Sodium 136 Potassium 4.0 Chloride 103 Carbon Dioxide 23 BUN 12 Creatinine 0.5 Glucose 147 H Calcium 8.3 L Liver Function 01/10/22 Range/Units 09:53 Total Bilirubin 0.9 (0.15-1.2) mg/dL AST 13 (0-32) U/L ALT 15 (0-33) U/L Alkaline Phosphatase 56 (35-105) IU/L Albumin 4.5 (3.5-5.2) g/dL Urine 01/10/22 Range/Units 09:45 Urine Color Yellow (Yellow) Urine Appearance Clear (CLEAR) Urine pH 8 H (5-7) Ur Specific [place] 1.015 (1.005-1.030) Urine Protein Neg (Negative) Urine Glucose (UA) Norm (Normal) Urine Ketones Negative (Negative) Urine Nitrate Negative (Negative) Urine Bilirubin Neg (Negative) Ur Leukocyte Esterase Negative (Negative) Cardiac Studies: Echocardiogram Ultrasound 10/06/20
[2022-01-10] MEDS: sodium chloride 0.9% 1,000 ML 30 ML IV (13:31)
--- NOTE | 2022-01-10 14:32 | P.OP_ITS ---
Operative Report Date of procedure: January 10, 2022 Pre-op diagnosis: Acute appendicitis Post-op diagnosis: same Procedure done: Laparoscopic appendectomy Specimens removed/disposition: Appendix Surgeon: Michael Perez Anesthesia: General Condition: stable Disposition: PACU Procedure: The patient was taken to the Operating Room and intubated under general anesthesia after antibiotic had been administered. Using a 15 blade, a 1-cm infraumbilical incision was made and using open Cr technique, the peritoneal cavity was entered. A 12mm port with balloon was placed and 15 mm of pn eumoperitoneum was created and 10-mm 30 degree scope was introduced. Two separate 5mm ports were placed in the left and right lower quadrant under direct visualization. The appendix was noted in the right lower quadrant and appeared acutely inflamed.. Using [place] forceps, an opening was made in the mesoappendix near the base of the appendix. An Endo GRETEL stapler 45mm long 3.5mm blue load was introduced to divide the appendix at it's base. Using electrocautery, the mesoappendix including the appendicular artery was divided. There was no bleeding noted and the staple line appeared intact. The right lower quadrant was irrigated with saline and an EndoCatch bag was introduced to remove the appendix. All three ports were removed under direct visualization and there was no bleeding noted on the port sites. 10cc of 0.25% Marcaine was infiltrated at the port sites. The fascia at the umbilical port was closed using figure of eight 0-Vicryl sutures and subcutaneous tissue was approximated using 3-0 Vicryl and skin at all 3 port sites was closed using 4-0 Monocryl and Dermabond. The patient was extubated and transferred to recovery room in stable condition.
--- NOTE | 2022-01-10 14:58 | P.PCN_ITS ---
PACU note Narrative: VSS, Good respiratory effort, report to TRACK HOE OPERATOR Exam: awake
--- NOTE | 2022-01-10 14:58 | PM.PACU ---
PACU note Narrative: VSS, Good respiratory effort, report to TILER Exam: awake
== END 2022-01-10 15:50 | disposition home or self-care (01) ==
LOC: ER 12:28 → OR 12:38
PROVIDERS: Emergency Provider Emergency Medicine; PCP Family Medicine; Visit Provider Surgery
PROC: 0DTJ4ZZ Resection of Appendix, Percutaneous Endoscopic Approach (ICD-10-PCS; CPT 44970; principal; 2022-01-10 13:30)
DX: K35.33 Acute appendicitis with perforation, localized peritonitis, and gangrene, with abscess (principal); F90.9 Attention-deficit hyperactivity disorder, unspecified type; F32.9 Major depressive disorder, single episode, unspecified; F41.9 Anxiety disorder, unspecified; E78.5 Hyperlipidemia, unspecified; R73.03 Prediabetes
CPT/HCPCS: 44970; 74177; 80053; 81003; 81025; 83605; 83690; 85025; 88304; 96372; J0171; J1100; J1200; J2270; J2405; J2543; J2704; J2710; J2930; J3010; J3490; J7030; Q9967

== ENCOUNTER → 2022-05-26 15:36 | Outpatient (BNVA) | payer BC, SELFPAY | PROVIDERS: PCP Family Medicine; Visit Provider Family Medicine | DX: F41.1 Generalized anxiety disorder (principal); F32.9 Major depressive disorder, single episode, unspecified; E66.9 Obesity, unspecified; E78.5 Hyperlipidemia, unspecified; R73.03 Prediabetes | CPT/HCPCS: 80053; 80061; 83036; 84443; 85025 ==

== ENCOUNTER 2022-09-15 09:58 | Day surgery (SDC) | payer OTHER, SELFPAY ==
[2022-09-14 09:31] VITALS: BMI 32.3
[2022-09-15 10:17] VITALS: BP 161/94; PULSE 82; RESP 16; TEMP 36.6; O2SAT 98
[2022-09-15] MEDS: sodium chloride 0.9% 1,000 ML 30 ML IV (10:28)
--- NOTE | 2022-09-15 10:31 | ANES.PREANE2 ---
Pre-Anesthetic Assessment Height/Weight: Height 1.68 m Weight 90.718 kg Temp Pulse Resp BP Pulse Ox O2 Del Method 97.8 F 82 16 161/94 98 09/15/22 10:17 09/15/22 10:17 09/15/22 10:17 09/15/22 10:17 09/15/22 10:17 09/15/22 10:17 Preop Diagnosis: screening Operation Date: 09/15/22 11:30 Proposed Procedures p Colonoscopy [id number],Z12.11(Not Applicable) - Xavi Sewell DO Familial anesthetic complications: none Was Beta Aline taken within 24 hours: N/A Was Clonidine taken within 24 hours: N/A Last intake: Intake Last Liquid Date 09/14/22 Last Liquid Time 23:30 Last Solid Date 09/13/22 Last Solid Time 20:00 Last Intake: 23:30 Social No alcohol and No tobacco Exam alert, oriented x 3, clear to auscultation bilaterally and regular rate & rhythm Airway Submandibular: within normal limits Cervical ROM: within normal limits Mallampati: Class II Dentition: full Pulmonary None reported CV/HEM None reported None reported Hepatic None reported GI None reported Metabolic Diabetes Mellitus (diet controlled) [facility] [place] None reported Neuropsych None reported Anesthetic Plan ASA status: 2 Anesthesia: MAC Medications/Allergies Home Medications Medication Instructions Recorded Confirmed Last Taken Type epinephrine 0.3 mg/0.3 mL 0.3 mg (0.3 mL) IM Q15M PRN 02/18/21 09/15/22 Unknown Rx injection, auto-injector (EpiPen anaphylaxis #2 ea 2-Tomas) Allergies Allergy/AdvReac Type Severity Reaction Status Date / Time morphine Allergy Severe ADR-Anxiety Verified 08/26/22 08:48 piperacillin [From Zosyn] Allergy Severe ALGY-Hives Verified 08/26/22 08:48 tazobactam [From Zosyn] Allergy Severe ALGY-Hives Verified 08/26/22 08:48 Alpha-Gal Allergy Intermediate ALGY-Rash Verified 08/26/22 08:48 (Uzcxjnrrb-Gxzwu-7,3-Gala [Ciltsmxan-Efsde-8,3-Galactose (Alph] cyclobenzaprine Allergy Unknown Verified 08/26/22 08:48 [From Flexeril] gel capsule Allergy Severe ALGY-Anaphy Uncoded 08/26/22 08:48 laxis Current Medications Generic Name Dose Route Start Last Admin Trade Name Bailee PRN Reason Stop Dose Admin Sodium Chloride 1,000 mls @ 30 mls/hr 09/15/22 10:00 09/15/22 10:28 Sodium Chloride 0.9% IV 09/16/22 09:59 30 mls/hr .Q24H NAKITA Administration PFSH Anesthesia Medical History (Updated 07/22/22 @ 09:24 by Papo Quinonez MD) ADHD Allergic rhinitis due to allergen Depression Generalized anxiety disorder Hyperlipidemia Prediabetes Upper respiratory tract infection URI (upper respiratory infection) Surgical History History of abdominoplasty S/P laparoscopic appendectomy (01/10/22) Family History Other Diabetes Myasthenia gravis Social History Smoking and tobacco status: never smoked Alcohol intake: never Household members: spouse and children Marital status: Number of children: 4 Current occupational status: employed History of recent travel: No Female Reproductive History Date of last menstrual period: 09/01/22 Spontaneous abortions: No Data Anesthesia Cardiac Studies: Echocardiogram Ultrasound 10/06/20
[2022-09-15 10:35] LABS: OR HCG Qualitative Urine Negative (Negative)
--- NOTE | 2022-09-15 11:00 | PM.HP ---
Providers/Chief Complaint Primary Care Provider: Chris Martinez DO Chief Complaint: Z12.11 History of Present Illness Fanny Mascorro is a 47 year old female who presents for her first screening colonoscopy. She denies any abdominal pain, nausea, emesis, diarrhea, constipation, hematochezia and/or melena. She had an aunt that had colon cancer but denies any other family history. Review of Systems General: Reports: 10 or more systems reviewed and unremarkable except in HPI and below Medications/Allergies Home Medications Medication Instructions Recorded Confirmed Last Taken Type epinephrine 0.3 mg/0.3 mL 0.3 mg (0.3 mL) IM Q15M PRN 02/18/21 09/15/22 Unknown Rx injection, auto-injector (EpiPen anaphylaxis #2 ea 2-Tomas) Allergies Allergy/AdvReac Type Severity Reaction Status Date / Time morphine Allergy Severe ADR-Anxiety Verified 08/26/22 08:48 piperacillin [From Zosyn] Allergy Severe ALGY-Hives Verified 08/26/22 08:48 tazobactam [From Zosyn] Allergy Severe ALGY-Hives Verified 08/26/22 08:48 Alpha-Gal Allergy Intermediate ALGY-Rash Verified 08/26/22 08:48 (Xeqfntkij-Kuilx-8,3-Gala [Yrnwqsgky-Auinp-8,3-Galactose (Alph] cyclobenzaprine Allergy Unknown Verified 08/26/22 08:48 [From Flexeril] gel capsule Allergy Severe ALGY-Anaphy Uncoded 08/26/22 08:48 laxis PFSH Acute PFSH: Medical History ADHD Allergic rhinitis due to allergen Depression Generalized anxiety disorder Hyperlipidemia Prediabetes Upper respiratory tract infection URI (upper respiratory infection) Surgical History History of abdominoplasty S/P laparoscopic appendectomy (01/10/22) Family History Other Diabetes Myasthenia gravis Social History Smoking and tobacco status: never smoked Alcohol intake: never Household members: spouse and children Marital status: Number of children: 4 Current occupational status: employed History of recent travel: No Female Reproductive History: Date of last menstrual period: 09/01/22 Spontaneous abortions: No Vitals/I&O/Wt Last Vital Signs Temp 97.8 F 09/15/22 10:17 Pulse 82 09/15/22 10:17 Resp 16 09/15/22 10:17 BP 161/94 09/15/22 10:17 Pulse Ox 98 09/15/22 10:17 O2 Del Method 09/15/22 10:17 Weight last 48 hrs Weight 200 lb Physical Exam Narrative: General : Patient is well developed , no acute distress, oriented x3 Head : Normal cephalic, a-traumatic. Ears : Pinnae and external canal are normal. Hearing is normal. Eyes : PERRLA, Sclera and injection are normal. No conjunctival discharge. Nose : Mucous membranes are without erythema. Throat : buccal mucosa is normal, gums are without significant recession or hypertrophy. Lungs : Equal chest rise bilaterally, no use of accessory muscles, trachea is midline. Cor : Rate and rhythm are normal. Abdomen : Soft, ND, NT, no g/r/m Extremities : No edema, no cyanosis or clubbing, dorsalis pedis pulses are present bilaterally, non-tender to palpation of calves. Upper extremities are normal bilaterally. Back : non-tender to palpation, no CVA tenderness. Neuro : CN II - XII intact, Upper and lower extremities have equal and full strength A&P Assessment and plan (1) Colon cancer screening: Plan Colonoscopy The risks and benefits of the procedure, including bleeding, infection, intestinal perforation requiring surgery, missed lesion were explained to the patient. The patient is understanding of the risks and wishes to proceed. Attestations Medical Necessity Statement*: Home Coding Level of Care Code Acute Video Games Storywriter for Chg Fwd Diagnoses Colon cancer screening Z12.11
[2022-09-15 11:23] VITALS: BP 124/75; PULSE 61; RESP 16; TEMP 36.2; O2SAT 99
[2022-09-15 11:35] VITALS: BP 115/75; PULSE 68; RESP 16; O2SAT 97
--- NOTE | 2022-09-15 17:32 | ANE.PACU2 ---
Inpatient post-anesthesia follow up: Airway intact: Yes Vital signs: Temperature 97.2 F Pulse Rate 68 Respiratory Rate 16 Blood Pressure 115/75 Pulse Oximetry 97 Oxygen Delivery Me thod Room Air Oxygen Flow Rate Fraction of Inspir ed Oxygen Hydration adequate: Yes Nausea and vomiting: No Pain level: 1 Mental status: Baseline
== END 2022-09-15 11:48 | disposition home or self-care (01) ==
PROVIDERS: Anesthesiology; PCP Family Medicine; Visit Provider Surgery
PROC: 0DJD8ZZ Inspection of Lower Intestinal Tract, Via Natural or Artificial Opening Endoscopic (ICD-10-PCS; CPT 45378; principal; 2022-09-15 11:30)
DX: Z12.11 Encounter for screening for malignant neoplasm of colon (principal); E78.5 Hyperlipidemia, unspecified; E11.9 Type 2 diabetes mellitus without complications
CPT/HCPCS: 45378; 81025; 84703; J2704; J7030

== ENCOUNTER 2022-09-17 07:32 | Outpatient (CLI) | payer OTHER, SELFPAY ==
--- NOTE | 2022-09-17 08:19 | MM_ITS ---
WS: [id number] Bilateral screening 3D tomosynthesis digital mammogram, 09/17/2022 Clinical Data: SCREENING Comparison: 09/26/2020 Findings: The breast parenchymal pattern shows glandular tissue. No spiculated masses or clustered calcificatio ns are seen. There are no secondary signs of carcinoma. MM/[id number] Impression: 1. Negative bilateral mammogram unchanged. 2. Recommend annual screening mammograms. BIRADS: 1-Negative FOLLOW UP: 1 Year Follow-up The CAD grade checker was used.
== END 2022-09-17 07:33 | disposition home or self-care (01) ==
LOC: RAD 07:32
PROVIDERS: PCP Family Medicine; Visit Provider Family Medicine
DX: Z12.31 Encounter for screening mammogram for malignant neoplasm of breast (principal)
CPT/HCPCS: 77063; 77067

== ENCOUNTER → 2023-06-08 09:11 | Outpatient (BNVA) | payer OTHER, SELFPAY | PROVIDERS: PCP Family Medicine; Visit Provider Family Medicine | DX: E78.5 Hyperlipidemia, unspecified (principal); F41.1 Generalized anxiety disorder; R73.03 Prediabetes; E66.9 Obesity, unspecified | CPT/HCPCS: 80053; 83036; 84443 ==

== ENCOUNTER 2023-11-03 10:02 | Emergency (ER) | payer OTHER, SELFPAY ==
[2023-11-03 10:05] VITALS: BP 157/119; PULSE 130; RESP 30; TEMP 36.3; O2SAT 99; BMI 30.7
[2023-11-03 10:27] LABS: ABG PCO2 25.9 mmHg (35-45); ABG PH Result 7.47 (7.35-7.45); Alveolar-Arterial Oxygen Gradi 0.3 mmHg (5-10); Arterial Blood Gas Hematocrit 46.9 % (37-47); Blood Gas Operator Identificat glc; Blood Gas Sample Site Femoral, left; Blood Gas Sample Type Arterial; HCO3 ABG 18.9 mmol/L (22-26); HGB O2 Sat 97.7 % (95-100); Ionized Calcium Level - ABG 1.2 mmol/L (1.1-1.4); Methemoglobin 0.8 % (0.4-1.5); Oxygen Device ROOM AIR; Oxygen Saturation ABG 99.5; PO2 FiO2 Ratio Arterial Blood 0; Potassium Level - ABG 3.9 mmol/L (3.5-5.0); Total Hemoglobin 15.3 g/dL (12-16)
--- NOTE | 2023-11-03 10:56 | ED_ITS ---
HPI - Headache 2 General: Chief Complaint: Headache Stated Complaint: panic attack Time Seen by Provider: 11/03/23 10:09 Source: patient Mode of arrival: ambulatory History of Present Illness: 48-year-old female presents emergency ro om complaining of migraine that she has had for the last 2 days with photophobia and otophobia. She has had migraines in the past, the current migraine is more intense. No recent history of trauma. She feels this is a work-related stress. When patient first arrived she was hyperventilating. She has also been very nauseous although she has not thrown up toner yet. She has tried zjac-yys-dmhtajy medicines including ibuprofen and Tylenol with no relief MD elicited complaint: migraine Pertinent past history: migraines Onset (ago): day(s) (2) Onset description: suddenly Location: frontal Severity: severe Quality & Timing: throbbing Exacerbating factors: none Relieving factors: nothing Associated symptoms: Reports nausea and photophobia; Deny chest pain, confusion, cough, diaphoresis, eye pain, eye redness, fever(s), lightheadedness, loss of vision, malaise, neck stiffness, numbness, paresthesias, pre-syncope, rash, seizures, short of breath, sound sensitivity, syncope, vomiting or weakness Treatments prior to arrival: none Review of Systems 2 Const: Denies: fever(s), malaise or diaphoresis Card: Denies: chest pain, lightheadedness, syncope or pre-syncope Resp: Denies: dyspnea GI: Reports: nausea; Denies: vomiting : Denies: dysuria, urinary frequency or urinary urgency Musc: Denies: neck pain or back pain Skin/Breast: Denies: rash Neuro: Denies: confusion PFSH ED 2 PFSH: Medical History ADHD Allergic rhinitis due to allergen Depression Generalized anxiety disorder Hyperlipidemia Prediabetes Upper respiratory tract infection URI (upper respiratory infection) Surgical History History of abdominoplasty S/P laparoscopic appendectomy (01/10/22) Family History Other Diabetes Myasthenia gravis Social History Smoking and tobacco/nicotine status: never used tobacco/nicotine Alcohol intake: never Substance/Drug Use: never Household members: spouse and children Marital status: Number of children: 4 Current occupational status: employed Female Reproductive History: Spontaneous abortions: No Physical Exam 2 Const: COMMON NORMALS: no acute distress GENERAL APPEARANCE: cooperative and comfortable ORIENTATION/CONSCIOUSNESS: Yes awake, Yes oriented to person, Yes oriented to place and Yes oriented to time HENMT: COMMON NORMALS: normocephalic, atraumatic and hearing grossly normal bilaterally HEAD & SCALP: normocephalic and atraumatic Eye: DIRECT OPHTHALMOSCOPY: Yes photophobia Resp: COMMON NORMALS: normal respiratory effort, No retractions, No use of accessory muscles and clear to auscultation bilaterally AUSCULTATION: clear to auscultation bilaterally Cardio: COMMON NORMALS: regular rate, regular rhythm and No murmurs present (Cardio) RATE: regular rate RHYTHM: regular rhythm GI: COMMON NORMALS: Soft to palpation and No hepatosplenomegaly present A USCULTATION: Yes normoactive bowel sounds PALPATION: Yes Soft to palpation, No Tenderness to palpation present (GI), No Guarding due to palpation present (GI) and Yes No hepatosplenomegaly present Extremity: COMMON NORMALS: normal to inspection, capillary refill normal, no clubbing, cyanosis or edema, no calf tenderness and no pedal edema Neuro: SENSORIUM/ORIENTATION: Yes oriented to person, Yes oriented to place and Yes oriented to time Skin: COMMON NORMALS: no rashes or lesions noted GENERAL SKIN EXAM: no rashes or lesions noted Course 2 Vital Signs: Vital signs: Vital Signs Temperature 97.3 F L 11/03/23 10:05 Pulse Rate 67 11/03/23 13:37 Respiratory Rate 30 H 11/03/23 10:05 Blood Pressure 125/67 11/03/23 13:37 Pulse Oximetry 100 11/03/23 13:37 Oxygen Delivery Me thod Room Air 11/03/23 10:05 MDM - Headache Medical Decision Making Headache improved with treatments given. She denies suicidal or homicidal ideation but is very frustrated anxious and depressed. Discussed with hospitalist will discharge patient from the ER and directed to the crisis stabilization unit. Medical Records I reviewed the patient's medical records. Lab Data I reviewed the patient's lab results. 11/03/23 12:10 11/03/23 12:10 Laboratory Results WBC 6.12 10^3/uL (3.29-11.43) 11/03/23 12:10 RBC 4.53 10^6/uL (3.85-5.65) 11/03/23 12:10 Hgb 14.00 g/dL (11.27-16.99) 11/03/23 12:10 Hct 41.3 % (36-47) 11/03/23 12:10 MCV 91.2 fl (85-98) 11/03/23 12:10 MCH 30.9 pg (27-33) 11/03/23 12:10 MCHC 33.9 g/dL (30-55) 11/03/23 12:10 RDW 12.5 % (12.1-15.1) 11/03/23 12:10 Plt Count 192 10^3/cmm (157-399) 11/03/23 12:10 MPV 9.0 fL (7.4-10.4) 11/03/23 12:10 Neut % (Auto) 56.9 % 11/03/23 12:10 Lymph % (Auto) 34.3 % 11/03/23 12:10 [place] % (Auto) 7.5 % 11/03/23 12:10 Eos % (Auto) 0.7 % 11/03/23 12:10 Baso % (Auto) 0.3 % 11/03/23 12:10 Neut # (Auto) 3.48 10^3/uL (1.8-7.7) 11/03/23 12:10 Lymph # (Auto) 2.1 10^3/uL (0.8-4.8) 11/03/23 12:10 [place] # (Auto) 0.5 10^3/uL (0.2-0.9) 11/03/23 12:10 Eos # (Auto) 0.0 10^3/uL (0.0-0.8) 11/03/23 12:10 Baso # (Auto) 0.0 10^3/uL (0.0-0.1) 11/03/23 12:10 Nucleated RBC % (auto) 0 % 11/03/23 12:10 Nucleated RBCs # 0.0 /100WBC 11/03/23 12:10 Specimen Type Arterial 11/03/23 10:18 Sample Site Femoral, left 11/03/23 10:18 ABG pH 7.47 (7.35-7.45) H 11/03/23 10:18 ABG pCO2 25.9 mmHg (35-45) L 11/03/23 10:18 ABG pO2 111.0 mmHg (80.0-100.0) H 11/03/23 10:18 ABG PO2/FiO2 Ratio 0 11/03/23 10:18 ABG HCO3 18.9 mmol/L (22-26) L 11/03/23 10:18 ABG O2 Saturation 99.5 11/03/23 10:18 ABG Base Excess -3.0 mmol/L (-2.0-2.0) L 11/03/23 10:18 Ifeanyi Test N/a 11/03/23 10:18 A-a O2 Gradient 0.3 mmHg (5-10) L 11/03/23 10:18 Hematocrit 46.9 % (37-47) 11/03/23 10:18 Hgb O2 Saturation 97.7 % (95-100) 11/03/23 10:18 Carboxyhemoglobin 1.0 %THgb (0.4-20.1) 11/03/23 10:18 Methemoglobin 0.8 % (0.4-1.5) 11/03/23 10:18 Total Hemoglobin 15.3 g/dL (12-16) 11/03/23 10:18 Sodium 139.0 mmol/L (131-143) 11/03/23 10:18 Potassium 3.9 mmol/L (3.5-5.0) 11/03/23 10:18 Glucose 130.0 mg/dL (70-115) H 11/03/23 10:18 Ionized Calcium 1.2 mmol/L (1.1-1.4) 11/03/23 10:18 O2 Delivery Device Room air 11/03/23 10:18 FiO2 21.0 % 11/03/23 10:18 Double End Chucking Machine Operator ID glc 11/03/23 10:18 Sodium 140 mmol/L (136-145) 11/03/23 12:10 Potassium 3.7 mmol/L (3.5-5.1) 11/03/23 12:10 Chloride 106 mmol/L (98-107) 11/03/23 12:10 Carbon Dioxide 24 mmol/L (22-29) 11/03/23 12:10 Anion Gap 13.7 (5-19) 11/03/23 12:10 BUN 13 mg/dL (6-20) 11/03/23 12:10 Creatinine 0.7 mg/dL (0.5-0.9) 11/03/23 12:10 GFR Calculation 90.1 mL/min (90-130) 11/03/23 12:10 Glucose 90 mg/dL (65-115) 11/03/23 12:10 Calculated Osmolality 290 mOsm/kg (285-295) 11/03/23 12:10 Calcium 8.7 mg/dL (8.5-10.5) 11/03/23 12:10 Total Bilirubin 0.9 mg/dL (0.15-1.2) 11/03/23 12:10 AST 10 U/L (0-32) 11/03/23 12:10 ALT 11 U/L (0-33) 11/03/23 12:10 Alkaline Phosphatase 46 U/L (35-105) 11/03/23 12:10 Total Protein 6.3 g/dL (6.6-8.7) L 11/03/23 12:10 Albumin 4.1 g/dL (3.5-5.2) 11/03/23 12:10 Globulin 2.2 g/dL (1.3-4.6) 11/03/23 12:10 Salicylates < 0.3 mg/dL (3-10) L 11/03/23 12:10 Acetaminophen < 5.0 ug/mL (10-30) L 11/03/23 12:10 Ethyl Alcohol < 10 mg/dL (0-10) 11/03/23 12:10 All radiology interpretation(s) finalized by discharge Discharge Plan Discharge Patient Disposition: Home Clinical Impression: Migraine, Generalized anxiety disorder Depression Qualifiers: Depression Type: major depressive disorder Major depression recurrence: r ecurrent Active/Remission status: in partial remission Qualified Code(s): F33.41 - Major depressive disorder, recurrent, in partial remission Condition: Stable Prescriptions: No Action epinephrine [EpiPen 2-Tomas] 0.3 mg/0.3 mL auto-injector 0.3 mg IM Q15M PRN (Reason: anaphylaxis) Qty: 2 0RF Rx Instructions: for 3 doses semaglutide (weight loss) 2.4 mg/0.75 mL Pen Injector 2.4 mg SUBCUT Q7D Rx Instructions: on tuesday Discharge Orders: Discharge ED (Routine); Ordered 11/03/23 Ordered By: Lauro Walker Referrals: Chris Martinez, [Primary Care Provider] - Patient Instructions: Opioid Safety, Pain Management Activity Restrictions/Additional Instructions: [facility] you [facility]. Please realize this is an emergency room and that we are providing you with a medical screening exam and this may not be complete and all inclusive of all the testing and or work up that you may need to determine your ailment or severity of your illness. It is very important that you follow up as instructed or that you return to the Emergency Department should you have concerns or if your condition changes or worsens in any way. After discharge they will take you to the crisis intervention center where you can be evaluated for services with [facility]. Coding Level of Care Code ED Drafter Structural for Lisa Gale
[2023-11-03] MEDS: diphenhydrAMINE 50 mg/mL SDV 1mL IVP (11:30)
[2023-11-03] MEDS: ketorolac 30 mg/mL INJ IVP (11:33)
[2023-11-03] MEDS: valproic acid inj 500 MG in sodium chloride 0.9% 50 ML 55 MG IV (11:36)
[2023-11-03 12:16] LABS: Basophils % 0.3 %; Eosinophils % 0.7 %; Hematocrit 41.3 % (36-47); Lymphocytes # 2.1 10^3/uL (0.8-4.8); Lymphocytes % 34.3 %; Mean Corpuscular HGB Conc 33.9 g/dL (30-55); Mean Corpuscular Hemoglobin 30.9 pg (27-33); Mean Corpuscular Volume 91.2 fl (85-98); Monocytes # 0.5 10^3/uL (0.2-0.9); Monocytes % 7.5 %; Neutrophils # 3.48 10^3/uL (1.8-7.7); Neutrophils % 56.9 %; Nucleated Red Blood Cells % 0 %; Platelet Count 192 10^3/cmm (157-399); Red Blood Count 4.53 10^6/uL (3.85-5.65); Red Cell Distribution Width 12.5 % (12.1-15.1); White Blood Count 6.12 10^3/uL (3.29-11.43)
[2023-11-03 12:40] LABS: Alanine Aminotransferase 11 U/L (0-33); Albumin Level 4.1 g/dL (3.5-5.2); Alkaline Phosphatase 46 U/L (35-105); Anion Gap 13.7 (5-19); Aspartate Amino Transferase 10 U/L (0-32); Blood Urea Nitrogen 13 mg/dL (6-20); Calcium 8.7 mg/dL (8.5-10.5); Carbon Dioxide 24 mmol/L (22-29); Chloride 106 mmol/L (98-107); Creatinine Clr Calc Pharmacy 111.0566; Globulin 2.2 g/dL (1.3-4.6); Glomerular Filtration Rate 90.1 mL/min (90-130); Glucose 90 mg/dL (65-115); Osmolality Calculated 290 mOsm/kg (285-295); Potassium 3.7 mmol/L (3.5-5.1); Sodium 140 mmol/L (136-145); Total Bilirubin 0.9 mg/dL (0.15-1.2); Total Protein 6.3 g/dL (6.6-8.7)
[2023-11-03 12:46] LABS: Acetaminophen < 5.0 ug/mL (10-30); Alcohol Level < 10 mg/dL (0-10); Salicylate < 0.3 mg/dL (3-10)
[2023-11-03 13:37] VITALS: BP 125/67; PULSE 67; O2SAT 100
== END 2023-11-03 13:39 | disposition home or self-care (01) ==
PROVIDERS: Emergency Provider Family Medicine; PCP Family Medicine
DX: G43.909 Migraine, unspecified, not intractable, without status migrainosus (principal); F41.1 Generalized anxiety disorder; F33.41 Major depressive disorder, recurrent, in partial remission; E78.5 Hyperlipidemia, unspecified
CPT/HCPCS: 36415; 36600; 80051; 80053; 80307; 82330; 82805; 85025; 96365; 96375; 99284; J1200; J1885; J3490

== ENCOUNTER → 2023-11-17 08:18 | Outpatient (BNVA) | payer OTHER, SELFPAY | PROVIDERS: PCP Family Medicine; Visit Provider Family Medicine | DX: R73.03 Prediabetes (principal); E78.2 Mixed hyperlipidemia; Z91.018 Allergy to other foods | CPT/HCPCS: 85025 ==

== ENCOUNTER 2023-11-18 10:40 | Outpatient (CLI) | payer OTHER, SELFPAY ==
[2023-11-18 11:14] LABS: Basophils % 0.4 %; Eosinophils # 0.1 10^3/uL (0.0-0.8); Eosinophils % 0.9 %; Hematocrit 40.3 % (36-47); Lymphocytes # 2.2 10^3/uL (0.8-4.8); Lymphocytes % 38.8 %; Mean Corpuscular HGB Conc 34.5 g/dL (30-55); Mean Platelet Volume 9.2 fL (7.4-10.4); Monocytes # 0.4 10^3/uL (0.2-0.9); Monocytes % 7.2 %; Neutrophils % 52.3 %; Nucleated Red Blood Cells % 0 %; Platelet Count 220 10^3/cmm (157-399); Red Blood Count 4.48 10^6/uL (3.85-5.65); Red Cell Distribution Width 12.4 % (12.1-15.1); White Blood Count 5.54 10^3/uL (3.29-11.43)
[2023-11-18 11:44] LABS: Alanine Aminotransferase 12 U/L (0-33); Albumin Level 4.3 g/dL (3.5-5.2); Alkaline Phosphatase 46 U/L (35-105); Anion Gap 15.8 (5-19); Aspartate Amino Transferase 13 U/L (0-32); Blood Urea Nitrogen 11 mg/dL (6-20); Calcium 8.7 mg/dL (8.5-10.5); Carbon Dioxide 23 mmol/L (22-29); Chloride 102 mmol/L (98-107); Chol HDL Ratio 4.23 mg/dL (0.0-4.40); Cholesterol 220 mg/dL (0-200); Globulin 2.2 g/dL (1.3-4.6); Glomerular Filtration Rate 107.6 mL/min (90-130); Glucose 104 mg/dL (65-115); HDL Cholesterol 52 mg/dL (60-100); LDL Cholesterol Calculated 154 mg/dL (50-129); LDL HDL Ratio 2.96 RATIO (0.00-3.22); Osmolality Calculated 284 mOsm/kg (285-295); Potassium 3.8 mmol/L (3.5-5.1); Sodium 137 mmol/L (136-145); Thyroid Stimulating Hormone 1.48 uIU/mL (0.27-4.20); Total Bilirubin 0.6 mg/dL (0.15-1.2); Total Protein 6.5 g/dL (6.6-8.7); Triglycerides 71 mg/dL (0-150)
[2023-11-21 16:50] LABS: Beef (27) IgE 0.18 kU/L; Beef Class 0/1; Lamb (F88) IgE 0.21 kU/L; Lamb Class 0/1; Pork (F26) IgE 0.15 kU/L; Pork Class 0/1
[2023-11-22 11:40] LABS: Galactose-alpha-1,3 IgE 0.51 kU/L (<0.10)
== END 2023-11-18 10:41 | disposition home or self-care (01) ==
LOC: LAB 10:42
PROVIDERS: PCP Family Medicine; Visit Provider Family Medicine
DX: Z01.89 Encounter for other specified special examinations (principal)
CPT/HCPCS: 80053; 80061; 84443; 85025; 86003; 86008

== ENCOUNTER 2023-11-30 08:14 | Outpatient (CLI) | payer OTHER, SELFPAY ==
[2023-11-30 09:16] LABS: Estmated Average Glucose 103; Hemoglobin A1C 5.2 % (4.0-6.0)
== END 2023-11-30 08:15 | disposition home or self-care (01) ==
LOC: LAB 08:15
PROVIDERS: PCP Family Medicine; Visit Provider Family Medicine
DX: R73.03 Prediabetes (principal)
CPT/HCPCS: 36415; 83036

== ENCOUNTER 2023-12-23 09:12 | Outpatient (CLI) | payer OTHER, SELFPAY ==
--- NOTE | 2023-12-23 09:15 | MM_ITS ---
WS: [id number] Bilateral screening 3D tomosynthesis digital mammogram, 12/23/2023 Clinical Data: SCREENING Comparison: 09/17/2022, 09/26/2020 Findings: The breast parenchymal pattern shows fibroglandular tissue. No spiculated masses or clustered calcifi cations are seen. There are no secondary signs of carcinoma. Impression: 1. Negative bilateral mammogram unchanged. 2. Recommend annual screening mammograms. MM/[id number] BIRADS: 1-Negative FOLLOW UP: 1 Year Follow-up The CAD cylinder checker was used.
== END 2023-12-23 09:13 | disposition home or self-care (01) ==
LOC: RAD 09:12
PROVIDERS: PCP Family Medicine; Visit Provider Family Medicine
DX: Z12.31 Encounter for screening mammogram for malignant neoplasm of breast (principal)
CPT/HCPCS: 77063; 77067

== ENCOUNTER 2025-06-01 06:47 | Emergency (ER) | payer BC, SELFPAY ==
[2025-06-01 06:53] VITALS: BP 143/81; PULSE 88; RESP 18; TEMP 36.6; O2SAT 97
--- NOTE | 2025-06-01 07:05 | W.ED.GENADLT ---
HPI - General Adult General: Chief complaint: General Medical Stated complaint: Fever / dark urine / nausea Time Seen by Provider: 06/01/25 06:54 Source: patient Mode of arrival: ambulatory Limitations: no limitations History of Present Illness: 50-year-old female states that she recently 2 weeks ago started taking Thorazine for sleep. She states that since then she has been having some shakes fevers nausea she states she been having light-colored stools along with some jaundice. States she has had some general fatigue as well. Denies any severe pain anywhere denies any headache or confusion. Associated symptoms: Deny chest pain, dyspnea, headache(s), nausea, rash or vomiting Related Data Home Medications ?Medication ?Instructions ?Recorded ?Confirmed chlorpromazine 50 mg tablet 100 mg PO BEDTIME 06/01/25 06/01/25 diphenhydramine HCl 25 mg capsule 25 mg PO TID PRN Allergic Symptoms 06/01/25 06/01/25 (Benadryl) Previous Rx's ?Medication ?Instructions ?Recorded epinephrine 0.3 mg/0.3 mL 0.3 mg (0.3 mL) IM Q15M PRN 01/23/24 injection, auto-injector (EpiPen anaphylaxis #2 ea 2-Tomas) ondansetron 4 mg disintegrating 4 mg PO Q6H PRN nausea and 06/01/25 tablet vomiting #14 tabs Allergies Allergy/AdvReac Type Severity Reaction Status Date / Time gelatin Allergy Severe ALGY-Anaphy Verified 07/24/24 15:10 laxis morphine Allergy Severe ADR-Anxiety Verified 11/17/23 08:04 piperacillin (From Zosyn) Allergy Severe ALGY-Hives Verified 11/17/23 08:04 tazobactam (From Zosyn) Allergy Severe ALGY-Hives Verified 11/17/23 08:04 Alpha-Gal Allergy Intermediate ALGY-Rash Verified 11/17/23 08:04 (Ynpexfzlk-Kfizx-7,3-Gala (Gikjsstmx-Xbrzg-9,3-Galactose (Alph) cyclobenzaprine (From Allergy Unknown Verified 11/17/23 08:04 Flexeril) Review of Systems Const: Denies: fever(s), chills, body aches or change in appetite Eyes: Denies: blurry vision or eye discomfort ENMT: Denies: throat pain or dental pain Card: Denies: chest pain Resp: Denies: dyspnea GI: Denies: abdominal pain, nausea, vomiting or diarrhea Musc: Denies: neck pain or back pain Skin/Breast: Denies: rash Neuro: Denies: headache(s) PFSH ED PFSH: Medical History Allergic rhinitis due to allergen URI (upper respiratory infection) Prediabetes Hyperlipidemia ADHD Generalized anxiety disorder Depression Upper respiratory tract infection Surgical History S/P laparoscopic appendectomy (01/10/22) History of abdominoplasty Family History Other Diabetes Myasthenia gravis Denies family history of Colon cancer Ovarian cancer Prostate cancer Heart disease Hypercholesteremia Breast cancer Hypertension Uterine cancer Thyroid disease Stroke Female Reproductive History: Spontaneous abortions: No Physical Exam Const: COMMON NORMALS: no acute distress, patient oriented x3 and healthy appearing HENMT: COMMON NORMALS: normocephalic and atraumatic HEAD & SCALP: normocephalic and atraumatic Eye: OTHER: Sclericterus Neck/C-Spine: COMMON NORMALS: full ROM and supple Chest: COMMONS NORMALS: normal inspection of the chest and normal palpation of entire chest wall Resp: COMMON NORMALS: normal respiratory effort, No retractions, No use of accessory muscles and clear to auscultation bilaterally AUSCULTATION: clear to auscultation bilaterally Cardio: COMMON NORMALS: regular rate, regular rhythm and No murmurs present (Cardio) RATE: regular rate RHYTHM: regular rhythm GI: COMMON NORMALS: Normal to inspection, nondistended, normoactive bowel sounds present, Soft to palpation, non-tender and no masses PALPATION: Yes Soft to palpation Extremity: COMMON NORMALS: normal to inspection and full ROM Neuro: COMMON NORMALS: patient oriented x3, moves all extremities and no focal motor deficits Psych: COMMON NORMALS: mental status grossly normal, Normal thought process present and cooperative THOUGHT PROCESS: Normal thought process present Skin: COMMON NORMALS: no rashes or lesions noted and no wounds GENERAL SKIN EXAM: no rashes or lesions noted Course Vital Signs: Vital signs: Vital Signs Temperature 97.9 F 06/01/25 06:53 Pulse Rate 68 06/01/25 10:01 Respiratory Rate 18 06/01/25 06:53 Blood Pressure 128/75 06/01/25 10:01 Pulse Oximetry 98 06/01/25 10:01 Oxygen Delivery Me thod Room Air 06/01/25 10:01 MDM - General Adult Medical Decision Making Patient presents for jaundice along with elevated bilirubin likely from her Thorazine. Hepatitis panel here was negative did a CT scan no signs of choledocholithiasis or mass blocking the common bile duct. No signs of ascending cholangitis her white count here is normal. She has not had any abdominal pain or vomiting. I did speak to GI at [facility] Dr. Daniel who recommended patient follow-up with her PCP in 1 week to have her CMP redrawn and she is to follow-up with GI in 2 weeks. I spoke to her primary care doctor Dr. Gonzalez as well to inform him of this. Informed patient of her findings along with that she needs to follow-up with her PCP in 1 week and GI in 2 she understands agrees to plan. I informed her if she has any abdominal pain or vomiting she is to return she understands agrees Medical Records I reviewed the patient's medical records. Lab Data I reviewed the patient's lab results. 06/01/25 07:06 06/01/25 07:06 Radiology Impressions Abdomen/Pelvis CT 06/01/25 08:06 IMPRESSION: 1. Hepatic steatosis. 2. Nonobstructing left renal calculi. 3. No CT evidence of acute intra-abdominal pathology. Laboratory Results WBC 4.53 10^3/uL (3.29-11.43) 06/01/25 07:06 RBC 4.55 10^6/uL (3.85-5.65) 06/01/25 07:06 Hgb 13.60 g/dL (11.27-16.99) 06/01/25 07:06 Hct 41.3 % (36-47) 06/01/25 07:06 MCV 90.8 fl (85-98) 06/01/25 07:06 MCH 29.9 pg (27-33) 06/01/25 07:06 MCHC 32.9 g/dL (30-55) 06/01/25 07:06 RDW 13.5 % (12.1-15.1) 06/01/25 07:06 Plt Count 280 10^3/cmm (157-399) 06/01/25 07:06 MPV 8.8 fL (7.4-10.4) 06/01/25 07:06 Neut % (Auto) 51.9 % 06/01/25 07:06 Lymph % (Auto) 33.1 % 06/01/25 07:06 [place] % (Auto) 11.3 % 06/01/25 07:06 Eos % (Auto) 1.1 % 06/01/25 07:06 Baso % (Auto) 1.1 % 06/01/25 07:06 Neut # (Auto) 2.35 10^3/uL (1.8-7.7) 06/01/25 07:06 Lymph # (Auto) 1.5 10^3/uL (0.8-4.8) 06/01/25 07:06 [place] # (Auto) 0.5 10^3/uL (0.2-0.9) 06/01/25 07:06 Eos # (Auto) 0.1 10^3/uL (0.0-0.8) 06/01/25 07:06 Baso # (Auto) 0.1 10^3/uL (0.0-0.1) 06/01/25 07:06 Nucleated RBC % (auto) 0 % 06/01/25 07:06 Nucleated RBCs # 0.0 /100WBC 06/01/25 07:06 Sodium 137 mmol/L (136-145) 06/01/25 07:06 Potassium 4.2 mmol/L (3.5-5.1) 06/01/25 07:06 Chloride 101 mmol/L (98-107) 06/01/25 07:06 Carbon Dioxide 22 mmol/L (22-29) 06/01/25 07:06 Anion Gap 18.2 (5-19) 06/01/25 07:06 BUN 12 mg/dL (6-20) 06/01/25 07:06 Creatinine 0.5 mg/dL (0.5-0.9) 06/01/25 07:06 GFR Calculation 131.7 mL/min (90-130) H 06/01/25 07:06 Glucose 147 mg/dL (65-115) H 06/01/25 07:06 Calculated Osmolality 286 mOsm/kg (285-295) 06/01/25 07:06 Calcium 9.4 mg/dL (8.5-10.5) 06/01/25 07:06 Total Bilirubin 6.8 mg/dL (0.15-1.2) H 06/01/25 07:06 AST 303 U/L (0-32) H 06/01/25 07:06 ALT 535 U/L (0-33) H 06/01/25 07:06 Alkaline Phosphatase 834 U/L (35-105) H 06/01/25 07:06 Total Protein 7.2 g/dL (6.6-8.7) 06/01/25 07:06 Albumin 4.4 g/dL (3.5-5.2) 06/01/25 07:06 Globulin 2.8 g/dL (1.3-4.6) 06/01/25 07:06 Lipase 19 U/L (13-60) 06/01/25 07:06 HCG, Qual Negative (Negative) 06/01/25 07:06 Urine Color Dark yellow (Yellow) A 06/01/25 06:59 Urine Appearance Cloudy (CLEAR) A 06/01/25 06:59 Urine pH 6.0 (5-7) 06/01/25 06:59 Ur Specific [place] 1.022 (1.005-1.030) 06/01/25 06:59 Urine Protein Trace (Negative) A 06/01/25 06:59 Urine Glucose (UA) Negative (Normal) 06/01/25 06:59 Urine Ketones Negative (Negative) 06/01/25 06:59 Urine Blood Negative (Negative) 06/01/25 06:59 Urine Nitrate Negative (Negative) 06/01/25 06:59 Urine Bilirubin 3+ (Negative) H 06/01/25 06:59 Urine Urobilinogen 2.0 mg/dL (Negative) H 06/01/25 06:59 Ur Leukocyte Esterase 2+ (Negative) A 06/01/25 06:59 Urine RBC 6-10 /hpf (0-2) 06/01/25 06:59 Urine WBC 21-50 /hpf (0-5) H 06/01/25 06:59 Ur Squamous Epith Cells 21-50 /hpf (0-5) H 06/01/25 06:59 Amorphous Sediment Not Reportable 06/01/25 06:59 Urine Bacteria 2+ /hpf (NONE) H 06/01/25 06:59 Hyaline Casts 0-4 /lpf H 06/01/25 06:59 Hepatitis A IgM Ab Non-reactive (Nonreactive) 06/01/25 07:06 Hep Bs Antigen Non-reactive (Nonreactive) 06/01/25 07:06 Hep Bs Antibody 25.4 (11.5-1000) 06/01/25 07:06 Hep B Core Total Ab Non-reactive (Nonreactive) 06/01/25 07:06 Hepatitis C Antibody Non-reactive (Nonreactive) 06/01/25 07:06 All radiology interpretation(s) finalized by discharge Discharge Plan Discharge Patient Disposition: Home Clinical Impression: Elevated bilirubin, Jaundice Condition: Stable Prescriptions: New ondansetron 4 mg tablet,disintegrating 4 mg PO Q6H PRN (Reason: nausea and vomiting) Qty: 14 0RF No Action epinephrine [EpiPen 2-Tomas] 0.3 mg/0.3 mL auto-injector 0.3 mg IM Q15M PRN (Reason: anaphylaxis) Qty: 2 0RF Rx Instructions: for 3 doses diphenhydramine HCl [Benadryl] 25 mg Capsule 25 mg PO TID PRN (Reason: Allergic Symptoms) chlorpromazine 50 mg tablet 100 mg PO BEDTIME Discharge Orders: Discharge ED (Routine); Ordered 06/01/25 Ordered By: Javi Herron Referrals: [facility] [Outside] Chris Martinez DO [Primary Care Provider, [facility]] - 4-7 days Discharge Diet: Advance as tolerated Discharge Activity: Resume usual activity Patient Instructions: Jaundice (ED) Print Language: [place] Timorese Coding Level of Care Code ED Driver Engineer for Lisa Gale
[2025-06-01 07:12] LABS: Hematocrit 41.3 % (36-47); Hemoglobin 13.60 g/dL (11.27-16.99); Mean Corpuscular HGB Conc 32.9 g/dL (30-55); Mean Corpuscular Hemoglobin 29.9 pg (27-33); Mean Corpuscular Volume 90.8 fl (85-98); Nucleated Red Blood Cells % 0 %; Platelet Count 280 10^3/cmm (157-399); Red Blood Count 4.55 10^6/uL (3.85-5.65); White Blood Count 4.53 10^3/uL (3.29-11.43)
[2025-06-01 07:19] LABS: Glucose Urine UA Negative (Normal); Nitrate Urine Negative (Negative); Specific Gravity, Urine 1.022 (1.005-1.030)
[2025-06-01 07:21] LABS: Add Urine Microscopic? YES
[2025-06-01] MEDS: ondansetron 2 mg/ML SDV 2 mL 4 MG IVP (07:21)
[2025-06-01 07:31] LABS: HCG, Serum Qual Negative (Negative)
[2025-06-01 07:33] LABS: Alanine Aminotransferase 535 U/L (0-33); Albumin Level 4.4 g/dL (3.5-5.2); Alkaline Phosphatase 834 U/L (35-105); Anion Gap 18.2 (5-19); Aspartate Amino Transferase 303 U/L (0-32); Blood Urea Nitrogen 12 mg/dL (6-20); Calcium 9.4 mg/dL (8.5-10.5); Carbon Dioxide 22 mmol/L (22-29); Chloride 101 mmol/L (98-107); Globulin 2.8 g/dL (1.3-4.6); Glucose 147 mg/dL (65-115); Lipase 19 U/L (13-60); Osmolality Calculated 286 mOsm/kg (285-295); Potassium 4.2 mmol/L (3.5-5.1); Sodium 137 mmol/L (136-145); Total Protein 7.2 g/dL (6.6-8.7)
[2025-06-01 07:35] LABS: Slide Review Slide Review Perform
[2025-06-01 07:50] LABS: Hepatitis A Antibody IgM Non-Reactive (Nonreactive); Hepatitis B Surface Antigen Non-Reactive (Nonreactive)
--- NOTE | 2025-06-01 08:06 | CTR_ITS ---
PROCEDURE INFORMATION: Exam: CT Abdomen And Pelvis With Contrast Exam date and time: 06/01/2025 8:16 AM Age: 50 years old Clinical indication: Abdominal pain; Additional info: Abd pain TECHNIQUE: Imaging protocol: Computed tomography of the abdomen and pelvis with contrast. Radiation optimization: All CT scans at this facility use at least one of these dose optimization techniques: automated exposure control; mA and/or kV adjustment per patient size (includes targeted exams where dose is matched to clinical indication); or iterative reconstruction. Contrast material: OMNI 350; Contrast volume: 100 ml; Contrast route: INTRAVENOUS (IV); COMPARISON: CT abdomen pelvis w con* [id number] 01/10/2022 11:05 AM RADIATION DOSE METRICS: Total DLP (mGy-cm): 453.65 FINDINGS: Lungs: The lung bases are clear. Liver: Mild hepatic steatosis. No focal liver lesions identified. No intrahepatic biliary dilatation. Gallbladder and biliary ducts: The gallbladder is unremarkable with no calcified stones visualized and no strandy inflammatory changes surrounding the gallbladder. Pancreas: The pancreas is normal in appearance. No evidence of pancreatic ductal dilatation. Spleen: The spleen is normal in appearance. Adrenal glands: The adrenal glands are normal in appearance. Kidneys and ureters: The kidneys are normal in appearance. No evidence of hydronephrosis or hydroureter. There is a 3 mm nonobstructing calculus in the upper pole of the left kidney. Stomach and bowel: The small bowel loops are not thickened and are nondilated. The colon is normal in appearance. Appendix: Status post appendectomy. Intraperitoneal space: Unremarkable. No free air. No significant fluid collection. Vasculature: Unremarkable. No abdominal aortic aneurysm. Lymph nodes: Unremarkable. No enlarged lymph nodes. Urinary bladder: The urinary bladder is normal in appearance. Reproductive: Unremarkable as visualized. Bones/joints: No acute osseous lesions. Soft tissues: Unremarkable. CT/CT abdomen pelvis w con* [id number] IMPRESSION: 1. Hepatic steatosis. 2. Nonobstructing left renal calculi. 3. No CT evidence of acute intra-abdominal pathology.
[2025-06-01] MEDS: iohexol 350 mg/mL 500 mL Btl (per mL) IV (08:19)
[2025-06-01 08:33] VITALS: BP 117/74; PULSE 69; O2SAT 98
[2025-06-01 09:08] VITALS: BP 121/77; PULSE 58; O2SAT 99
[2025-06-01 10:01] VITALS: BP 128/75; PULSE 68; O2SAT 98
[2025-06-01] MEDS: benztropine 1 mg/mL SDV 2 mL IM (10:55)
== END 2025-06-01 11:18 | disposition home or self-care (01) ==
PROVIDERS: Emergency Provider Emergency Medicine; PCP Family Medicine
DX: E80.7 Disorder of bilirubin metabolism, unspecified (principal); R17 Unspecified jaundice; E78.5 Hyperlipidemia, unspecified
CPT/HCPCS: 36415; 74177; 80053; 81001; 83690; 84703; 85025; 86705; 86706; 86709; 86803; 87086; 87340; 96372; 96374; 99285; J0515; J2405

== ENCOUNTER → 2025-06-04 08:00 | Outpatient (BNVA) | payer BC, SELFPAY | PROVIDERS: PCP Family Medicine; Visit Provider Family Medicine | DX: R74.8 Abnormal levels of other serum enzymes (principal) | CPT/HCPCS: 80053 ==

== ENCOUNTER 2025-06-05 11:04 | Emergency (ER) | payer BC, SELFPAY ==
[2025-06-05 11:07] VITALS: BP 135/85; PULSE 111; TEMP 36.7; O2SAT 99
[2025-06-05 11:42] VITALS: BP 149/93; PULSE 74; O2SAT 99
--- NOTE | 2025-06-05 11:42 | W.ED.ABDPA2 ---
HPI - Abdominal Pain General: Chief Complaint: Abdominal Pain Stated Complaint: Lower back and abd pain yellow eyes Time Seen by Provider: 06/05/25 11:24 History of Present Illness: 50-year-old female who presents emergency room with headache, worsening itching nausea and generalized abdominal pain. She is also having some back pain. Apparently it is thought that she had a reaction to Thorazine and has a transaminitis at this point. Drug-induced hepatitis. She has been to the emergency room couple of times. Had a normal abdominal CT. Her skin is fairly erythematous. She does appear jaundiced. Related Data Home Medications ?Medication ?Instructions ?Recorded ?Confirmed chlorpromazine 50 mg tablet 100 mg PO BEDTIME 06/01/25 06/05/25 diphenhydramine HCl 25 mg capsule 25 mg PO TID PRN Allergic Symptoms 06/01/25 06/05/25 (Benadryl) Previous Rx's ?Medication ?Instructions ?Recorded epinephrine 0.3 mg/0.3 mL 0.3 mg (0.3 mL) IM Q15M PRN 01/23/24 injection, auto-injector (EpiPen anaphylaxis #2 ea 2-Tomas) hydroxyzine HCl 25 mg tablet 25 mg PO TID PRN itching #60 tabs 06/04/25 lorazepam 0.5 mg tablet 0.5 mg PO BID PRN anxiety #14 tabs 06/04/25 ondansetron 4 mg disintegrating 4 mg PO Q6H PRN nausea and 06/04/25 tablet vomiting #14 tabs cholestyramine 4 gram oral powder 4 g PO BID PRN itching #201.6 grams 06/05/25 prednisone 20 mg tablet 60 mg (3 x 20 mg) PO DAILY 5 days 06/05/25 #15 tabs Allergies Allergy/AdvReac Type Severity Reaction Status Date / Time gelatin Allergy Severe ALGY-Anaphy Verified 06/05/25 11:13 laxis morphine Allergy Severe ADR-Anxiety Verified 06/05/25 11:13 piperacillin (From Zosyn) Allergy Severe ALGY-Hives Verified 06/05/25 11:13 tazobactam (From Zosyn) Allergy Severe ALGY-Hives Verified 06/05/25 11:13 Alpha-Gal Allergy Intermediate ALGY-Rash Verified 06/05/25 11:13 (Cchhwgvbr-Affgp-9,3-Gala (Flacjkqnr-Ymbav-2,3-Galactose (Alph) cyclobenzaprine (From Allergy Unknown Verified 06/05/25 11:13 Flexeril) Review of Systems Narrative: Constitutional symptoms: Negative except as documented in HPI. Skin symptoms: Negative except as documented in HPI. Eye symptoms: Negative except as documented in HPI. ENMT symptoms: Negative except as documented in HPI. Respiratory symptoms: Negative except as documented in HPI. Cardiovascular symptoms: Negative except as documented in HPI. Gastrointestinal symptoms: Negative except as documented in HPI. Genitourinary symptoms: Negative except as documented in HPI. Musculoskeletal symptoms: Negative except as documented in HPI. Neurologic symptoms: Negative except as documented in HPI. Psychiatric symptoms: Negative except as documented in HPI. Endocrine symptoms: Negative except as documented in HPI. PFSH ED PFSH: Medical History (Updated 06/05/25 @ 15:19 by Alejandra Garcia MD) Allergic rhinitis due to allergen URI (upper respiratory infection) Prediabetes Hyperlipidemia ADHD Generalized anxiety disorder Depression Upper respiratory tract infection Surgical History S/P laparoscopic appendectomy (01/10/22) History of abdominoplasty Family History Other Diabetes Myasthenia gravis Denies family history of Colon cancer Ovarian cancer Prostate cancer Heart disease Hypercholesteremia Breast cancer Hypertension Uterine cancer Thyroid disease Stroke Social History Smoking and tobacco/nicotine status: never used tobacco/nicotine Female Reproductive History: Spontaneous abortions: No Physical Exam Narrative: EXAM NARRATIVE: General: Alert, no acute distress. Skin: Warm, dry. Erythema of the chest wall. Jaundice Head: Normocephalic, atraumatic. Neck: Supple, trachea midline. Eye: Extraocular movements are intact. Scleral icterus Ears, nose, mouth and throat: mucosa moist. Cardiovascular: Regular, Normal peripheral perfusion. Respiratory: Lungs are clear to auscultation, respirations are non-labored, breath sounds are equal, Symmetrical chest wall expansion. Gastrointestinal: Soft, Nontender, Non distended Musculoskeletal: Normal ROM, no deformity. Neurological: Alert and oriented, No focal neurological deficit observed. Psychiatric: Cooperative, appropriate mood & affect. Course Vital Signs: Vital signs: Vital Signs Temperature 98.1 F 06/05/25 11:07 Pulse Rate 66 06/05/25 14:35 Respiratory Rate 20 H 06/05/25 14:35 Blood Pressure 117/74 06/05/25 14:35 Pulse Oximetry 97 06/05/25 14:35 Oxygen Delivery Me thod Room Air 06/05/25 14:35 MDM - Abdominal Pain Medical Decision Making Medical decision making: Differential diagnosis including but not limited to and based on the above HPI, review of systems and physical exam: In this patient with known acute hepatitis I am repeating lab work as she is having worsening itching. Also an ultrasound just to be sure that there is no gallbladder issues that might not of been seen on CT scan. Orders placed to evaluate differential diagnosis based on the above differential, HPI and physical exam Lab Review: Laboratory results were reviewed and interpreted by myself the emergency room physician. No leukocytosis. No anemia. No renal failure. Liver enzymes are fairly stable. Bilirubin is creeping up and is up to 10.8 today. Ultrasound of the liver and gallbladder: Likely hepatic congestion which is consistent with the patient's symptoms. Does not appear to have cholecystitis. No stones. Normal common bile duct. No intrahepatic biliary dilatation. This was reviewed and interpreted by myself the emergency room physician. I also reviewed the radiology report. I reviewed the patient's medical record. From ER visit a couple days ago. Patient had a abdominal CT that was normal. Liver enzymes and bili were elevated. Consultation: I spoke with Dr. Martinez about the patient. He will work on arranging follow-up with gastroenterology. Consultation: I spoke again with with GI at [facility]. He does not feel that admission is necessary at this point but he will follow-up with the patient in clinic in the near future. He does agree that steroids usually are not helpful but might make the patient feel better. Also agrees with cholestyramine Reexamination: We discussed findings at length. Patient's headache is improving after treatment. She does appear a bit dehydrated and has had poor appetite so fluids are being given. No altered mental status. Says she does feel foggy and we discussed that that is likely due to the malfunction of her liver in the lack of clearing of nitrogen products. Assessment and plan: Drug-induced hepatitis Hyperbilirubinemia Dehydration Migraine headache Pruritus For migraine - 50 mg IV Benadryl - 30 mg IV Toradol - 10 mg IV Reglan - 8 mg IV Zofran - 60 mg IV Norflex For dehydration - 1 L normal saline bolus For pruritus: ?IV Decadron and IV Benadryl. Home with cholestyramine and a steroid burst. - Discharged home - Discussed plan with patient. Answered any questions. - Evaluation and treatment of this problem were appropriate in the emergency setting. Lab Data 06/05/25 11:40 06/05/25 11:40 Labs/Radiology: Radiology Impressions Abdomen Ultrasound 06/05/25 12:22 IMPRESSION: 1. Coarse hepatic echotexture likely due to fatty infiltration 2. Contracted gallbladder with mild gallbladder wall thickening measuring 3 mm although no pericholecystic fluid. This may be due to hepatic congestion. No visualized cholelithiasis. Recommend correlation with biliary function studies 3. Normal common bile duct. No intrahepatic biliary ductal dilatation. 4. No hydronephrosis in the RIGHT kidney. 5. No other acute findings. Laboratory Results WBC 4.61 10^3/uL (3.29-11.43) 06/05/25 11:40 RBC 4.74 10^6/uL (3.85-5.65) 06/05/25 11:40 Hgb 14.30 g/dL (11.27-16.99) 06/05/25 11:40 Hct 42.1 % (36-47) 06/05/25 11:40 MCV 88.8 fl (85-98) 06/05/25 11:40 MCH 30.2 pg (27-33) 06/05/25 11:40 MCHC 34.0 g/dL (30-55) 06/05/25 11:40 RDW 13.4 % (12.1-15.1) 06/05/25 11:40 Plt Count 332 10^3/cmm (157-399) 06/05/25 11:40 MPV 8.9 fL (7.4-10.4) 06/05/25 11:40 Neut % (Auto) 54.1 % 06/05/25 11:40 Lymph % (Auto) 34.9 % 06/05/25 11:40 [place] % (Auto) 9.8 % 06/05/25 11:40 Eos % (Auto) 0.4 % 06/05/25 11:40 Baso % (Auto) 0.4 % 06/05/25 11:40 Neut # (Auto) 2.49 10^3/uL (1.8-7.7) 06/05/25 11:40 Lymph # (Auto) 1.6 10^3/uL (0.8-4.8) 06/05/25 11:40 [place] # (Auto) 0.5 10^3/uL (0.2-0.9) 06/05/25 11:40 Eos # (Auto) 0.0 10^3/uL (0.0-0.8) 06/05/25 11:40 Baso # (Auto) 0.0 10^3/uL (0.0-0.1) 06/05/25 11:40 Nucleated RBC % (auto) 0 % 06/05/25 11:40 Nucleated RBCs # 0.0 /100WBC 06/05/25 11:40 Sodium 137 mmol/L (136-145) 06/05/25 11:40 Potassium 4.0 mmol/L (3.5-5.1) 06/05/25 11:40 Chloride 101 mmol/L (98-107) 06/05/25 11:40 Carbon Dioxide 23 mmol/L (22-29) 06/05/25 11:40 Anion Gap 17.0 (5-19) 06/05/25 11:40 BUN 13 mg/dL (6-20) 06/05/25 11:40 Creatinine 0.4 mg/dL (0.5-0.9) L 06/05/25 11:40 GFR Calculation 170.4 mL/min (90-130) H 06/05/25 11:40 Glucose 111 mg/dL (65-115) 06/05/25 11:40 Calculated Osmolality 285 mOsm/kg (285-295) 06/05/25 11:40 Calcium 9.5 mg/dL (8.5-10.5) 06/05/25 11:40 Total Bilirubin 10.8 mg/dL (0.15-1.2) H* 06/05/25 11:40 AST 329 U/L (0-32) H 06/05/25 11:40 ALT 561 U/L (0-33) H 06/05/25 11:40 Alkaline Phosphatase 625 U/L (35-105) H 06/05/25 11:40 Total Protein 7.3 g/dL (6.6-8.7) 06/05/25 11:40 Albumin 4.3 g/dL (3.5-5.2) 06/05/25 11:40 Globulin 3.0 g/dL (1.3-4.6) 06/05/25 11:40 Urine Color Dark yellow (Yellow) A 06/05/25 11:35 Urine Appearance Clear (CLEAR) 06/05/25 11:35 Urine pH 6.5 (5-7) 06/05/25 11:35 Ur Specific [place] 1.019 (1.005-1.030) 06/05/25 11:35 Urine Protein Trace (Negative) A 06/05/25 11:35 Urine Glucose (UA) Negative (Normal) 06/05/25 11:35 Urine Ketones 1+ (Negative) H 06/05/25 11:35 Urine Blood Negative (Negative) 06/05/25 11:35 Urine Nitrate Negative (Negative) 06/05/25 11:35 Urine Bilirubin 3+ (Negative) H 06/05/25 11:35 Urine Urobilinogen 1.0 mg/dL (Negative) 06/05/25 11:35 Ur Leukocyte Esterase Trace (Negative) A 06/05/25 11:35 Urine RBC 0-2 /hpf (0-2) 06/05/25 11:35 Urine WBC 0-5 /hpf (0-5) 06/05/25 11:35 Ur Squamous Epith Cells 0-5 /hpf (0-5) 06/05/25 11:35 Amorphous Sediment Not Reportable 06/05/25 11:35 Urine Bacteria None seen /hpf (NONE) 06/05/25 11:35 Hyaline Casts 0-4 /lpf H 06/05/25 11:35 All radiology interpretation(s) finalized by discharge Discharge Plan Discharge Patient Disposition: Home Clinical Impression: Drug-induced hepatitis, Hyperbilirubinemia, Dehydration, Migraine headache, Pruritus Condition: Stable Prescriptions: New cholestyramine 4 gram powder 4 g PO BID PRN (Reason: itching) Qty: 201.6 0RF Rx Instructions: administer w/meal; avoid other meds within 1hr before or 4-6hr after dose prednisone 20 mg tablet 60 mg PO DAILY 5 Days Qty: 15 0RF No Action hydroxyzine HCl 25 mg tablet 25 mg PO TID PRN (Reason: itching) Qty: 60 0RF lorazepam 0.5 mg tablet 0.5 mg PO BID PRN (Reason: anxiety) Qty: 14 0RF ondansetron 4 mg tablet,disintegrating 4 mg PO Q6H PRN (Reason: nausea and vomiting) Qty: 14 0RF epinephrine [EpiPen 2-Tomas] 0.3 mg/0.3 mL auto-injector 0.3 mg IM Q15M PRN (Reason: anaphylaxis) Qty: 2 0RF Rx Instructions: for 3 doses diphenhydramine HCl [Benadryl] 25 mg Capsule 25 mg PO TID PRN (Reason: Allergic Symptoms) chlorpromazine 50 mg tablet 100 mg PO BEDTIME Discharge Orders: Discharge ED (Routine); Ordered 06/05/25 Ordered By: Alejandra Garcia Referrals: Chris Martinez, [Primary Care Provider, [facility]] Discharge Diet: Advance as tolerated Discharge Activity: Increase activity as tolerated Patient Instructions: Migraine Headache (ED), Jaundice (ED), Opioid Safety, Pain Management, Patient Portal & Phan Instructions Activity Restrictions/Additional Instructions: Please call [facility] gastroenterology for appointment as soon as possible. Thank you for choosing [facility] for your healthcare needs today. You have been screened and evaluated and felt safe for discharge. Health conditions do change or evolve sometimes and as such it is important that you follow up with your Primary Doctor to be re checked, 3-5 days is a general good time frame for follow up. You are always welcome to return to the ED for re assessment if your symptoms are worsening or you have new concerns Print Language: Japanese Coding Level of Care Code ED Ob Gyn for Lisa Gale
[2025-06-05 11:46] LABS: Glucose Urine UA Negative (Normal); Nitrate Urine Negative (Negative); Specific Gravity, Urine 1.019 (1.005-1.030)
[2025-06-05 11:52] LABS: Hematocrit 42.1 % (36-47); Hemoglobin 14.30 g/dL (11.27-16.99); Mean Corpuscular HGB Conc 34.0 g/dL (30-55); Mean Corpuscular Hemoglobin 30.2 pg (27-33); Mean Corpuscular Volume 88.8 fl (85-98); Nucleated Red Blood Cells % 0 %; Platelet Count 332 10^3/cmm (157-399); Red Blood Count 4.74 10^6/uL (3.85-5.65); White Blood Count 4.61 10^3/uL (3.29-11.43)
[2025-06-05 12:16] LABS: Alanine Aminotransferase 561 U/L (0-33); Albumin Level 4.3 g/dL (3.5-5.2); Alkaline Phosphatase 625 U/L (35-105); Anion Gap 17.0 (5-19); Aspartate Amino Transferase 329 U/L (0-32); Blood Urea Nitrogen 13 mg/dL (6-20); Calcium 9.5 mg/dL (8.5-10.5); Carbon Dioxide 23 mmol/L (22-29); Chloride 101 mmol/L (98-107); Creatinine Clr Calc Pharmacy 172.9708; Globulin 3.0 g/dL (1.3-4.6); Glucose 111 mg/dL (65-115); Osmolality Calculated 285 mOsm/kg (285-295); Potassium 4.0 mmol/L (3.5-5.1); Sodium 137 mmol/L (136-145); Total Protein 7.3 g/dL (6.6-8.7)
[2025-06-05] MEDS: orphenadrine 30 mg/mL Inj 2 mL 60 MG IVP (12:20)
[2025-06-05] MEDS: diphenhydrAMINE 50 mg/mL SDV 1mL IVP (12:20)
--- NOTE | 2025-06-05 12:22 | US_ITS ---
WS: [id number] ULTRASOUND ABDOMEN LIMITED CLINICAL INFORMATION: liver and gallbladder. worsening liver enzymes COMPARISON: None. FINDINGS: Liver Size: Normal. Craniocaudal length: 13.4 cm. Echogenicity: Coarse Surface nodularity: None. Mass (size and location): None. Main portal vein is patent. Bile ducts Intrahepatic ducts: Normal. Common bile duct diameter: 0.5 cm. Gallbladder Contracted Gallstones: None. Gallbladder sludge: None. Gallbladder wall thickening: Mild wall thickening measuring 3 mm Pericholecystic fluid: None. Sonographic Wilson sign: Absent. Pancreas Normal as visualized. Right kidney: Normal. Hydronephrosis: None. Size: 9.3 cm x 3.8 cm x 4.6 cm. Abdominal aorta and IVC Visualized portions are normal. Ascites: None. US/US abdomen limited [id number] IMPRESSION: 1. Coarse hepatic echotexture likely due to fatty infiltration 2. Contracted gallbladder with mild gallbladder wall thickening measuring 3 mm although no pericholecystic fluid. This may be due to hepatic congestion. No v isualized cholelithiasis. Recommend correlation with biliary function studies 3. Normal common bile duct. No intrahepatic biliary ductal dilatation. 4. No hydronephrosis in the RIGHT kidney. 5. No other acute findings.
[2025-06-05 13:12] VITALS: BP 115/70; PULSE 64; O2SAT 98
[2025-06-05 14:35] VITALS: BP 117/74; PULSE 66; RESP 20; O2SAT 97
[2025-06-05] MEDS: metoclopramide 5 mg/mL SDV 2 mL 10 MG IVP (15:42)
[2025-06-05 15:46] VITALS: BP 134/72; PULSE 72; RESP 20; O2SAT 97
[2025-06-05 16:24] VITALS: BP 128/68; PULSE 64; O2SAT 98
== END 2025-06-05 16:34 | disposition home or self-care (01) ==
PROVIDERS: Emergency Provider Emergency Medicine; PCP Family Medicine
DX: K75.9 Inflammatory liver disease, unspecified (principal); E80.6 Other disorders of bilirubin metabolism; E86.0 Dehydration; G43.909 Migraine, unspecified, not intractable, without status migrainosus; L29.9 Pruritus, unspecified; E78.5 Hyperlipidemia, unspecified
CPT/HCPCS: 36415; 76705; 80053; 81001; 85025; 96374; 96375; 96376; 99285; J1100; J1200; J1885; J2360; J2765; J7030